=== PATIENT | male | born 1985 | race Caucasian/White ===

== ENCOUNTER 2021-09-22 12:44 | Outpatient (REF) | payer MEDICAID, SELFPAY ==
--- NOTE | ~2021-09-22 | CT_ITS ---
EXAMINATION: CT ABDOMEN AND PELVIS WITH CONTRAST CLINICAL INFORMATION: 35-year-old male with hematuria COMPARISON: Renal ultrasound 07/03/[address] abdomen pelvis 07/02/2017 TECHNIQUE: Multidetector volumetric images were obtained from the superior aspect of the liver through the pubic symphysis following administration 85 mL of Omnipaque 350 intravenous contrast. Sagittal and coronal reformatted images were obtained on the technologist's workstation. This CT examination was performed using dose optimization techniques as appropriate, variously including the following: *Automated exposure control *Adjustment of mA and/or kV according to patient size (this includes techniques or standardized protocols for targeted exams where dose is matched to indication/reason for exam; i.e. extremities or head) *Use of iterative reconstruction technique DLP: 434 mGy-cm FINDINGS: Visualized lung bases demonstrate some minimal subpleural nodularity dependently, particularly within the left lung base, nonspecific but suspected atelectasis. The liver demonstrates normal size, contour and attenuation. The gallbladder is normal in appearance. The pancreas, spleen and adrenal glands are unremarkable. Symmetrically enhancing kidneys. There is no hydronephrosis bilaterally. No gross renal calculi identified on today's contrast enhanced imaging. Interval decrease in size of now 1.3 cm hypodensity within the posterior right kidney, previously 2.7 cm. Normal caliber loops of small and large bowel. Mild to moderate colonic stool burden. Normal appendix. Normal caliber abdominal aorta. No retroperitoneal lymphadenopathy. Stable tiny fat-containing umbilical hernia. The bladder is normal in appearance. The prostate gland is normal in size. No gross free pelvic fluid. Small fat-containing left inguinal hernia. No inguinal lymphadenopathy. No acute osseous abnormality. Some ill-defined lytic changes are noted involving the left L3 pedicle, nonspecific. CT/CT abdomen pelvis w con IMPRESSION: -No hydronephrosis of either kidney. Evaluation for renal calculi is suboptimal given contrast enhanced imaging, however, no gross renal calculi are noted. -Interval decrease in size of now 1.3 cm hypodensity within the posterior right kidney, previously 2.7 cm. This was previously characterized as a cyst on prior ultrasound imaging. Follow-up ultrasound imaging can be obtained as clinically indicated. -Mild to moderate colonic stool burden. -Some ill-defined lytic changes are noted involving the left L3 pedicle, nonspecific.
[2021-09-22] MEDS: iohexoL 350 MG/ML 100 ML INFUS..BTL IV (16:04)
== END 2021-09-22 12:45 | disposition home or self-care (01) ==
LOC: HO.CT 12:44
PROVIDERS: Visit Provider Internal Medicine
DX: R31.9 Hematuria, unspecified (principal)
CPT/HCPCS: 74177; Q9967

== ENCOUNTER 2022-01-13 00:46 | Inpatient (IN) | payer OTHER, SELFPAY ==
[2022-01-13 00:49] VITALS: BP 143/72; PULSE 75; RESP 18; TEMP 37.8; O2SAT 94; BMI 25.1
--- NOTE | 2022-01-13 00:50 | ED.PSYCH ---
HPI - Psych General Chief Complaint: Psychiatric Symptoms Stated Complaint: CRISIS Time Seen by Provider: 01/13/22 00:50 Source: patient Mode of arrival: EMS Limitations: no limitations History of Present Illness MD complaint: suicidal ideation, feels depressed and anxiety Onset (ago): day(s) Duration: getting worse History of same: No Relieving factors: none Context: significant life stressor Associated psychiatric symptoms: depression, suicidal ideation, homicidal ideation and delusions Associated symptoms: denies other symptoms Treatments prior to arrival: placed on mental health hold If self harm: admits thoughts of self harm Related Data Home Medications Medication Instructions Recorded Confirmed buprenorphine 8 mg-naloxone 2 mg 1.5 strip SUBLINGUAL DAILY 01/13/22 01/13/22 sublingual film (Suboxone) Allergies Allergy/AdvReac Type Severity Reaction Status Date / Time No Known Allergies Allergy Unverified 06/24/20 17:10 [No Known Allergies*] Review of Systems Review of Systems: Constitutional : No Fever, No Chills ENT/Mouth : No Ear Pain, No Nasal Congestion, No sore throat Eyes: No Eye Pain, No Swelling, No Redness Cardiovascular : No Chest Pain, No SOB Respiratory : No Cough, No Sputum, No Dyspnea Gastrointestinal : No Nausea, No Vomiting, No Diarrhea, No Hematochezia, No Melena Genitourinary : No Dysuria, No Urinary Frequency, No Hematuria Musculoskeletal : No Myalgias Skin : No Skin Lesions, No rash Neuro : No Weakness, No Numbness, No Paresthesias, No Dizziness, No Headache Psych : positive Anxiety, positive Depression, positive SI/HI Heme/Lymph: No Lymphadenopathy Endocrine : No Polyuria, No Polydipsia All other systems reviewed and are negative [facility] Past Medical History Attestation statement: The following information was validated with the patient. Medical History Depression Opiate use Social History Social History (Updated 01/13/22 @ 01:22 by Tea Whitt DO) Patient Tobacco Use Status: Tobacco use Unknown Substance Use Type: Former Substance User Physical Exam Vital Signs: Vital Signs: Last Vital Signs Temp 99 F 01/13/22 01:29 Pulse 75 01/13/22 00:49 Resp 18 01/13/22 00:49 BP 143/72 H 01/13/22 00:49 Pulse Ox 96 01/13/22 01:29 BMI result Body Mass Index 25.1 Appearance: Alert. Oriented X3. Mild acute distress. Tearful and anxious Eyes: Pupils equal, round and reactive to light. ENT: Pharynx normal. Neck: Normal inspection. Neck supple. CVS: tachycardic heart rate and rhythm. Pulses normal. Respiratory: No respiratory distress. Breath sounds normal. Abdomen: Soft and non-tender. Skin: Skin warm and dry. Normal skin color. Normal skin turgor. R hand abrasions noted on MCPs Extremities: No lower extremity edema. Neuro: Oriented X 3. No motor deficit. No sensory deficit. CN 2-12 intact Course Course Course Narrative: Physician observation started at 213am. Patient placed in physician observation because the patient needed more time for N to assess the need for psych admission. At the time observation was started the patient's vitals were stable, patient is alert and oriented but slightly anxious, Neuro: nonfocal, CV RRR, Lungs clear MDM - Psych MDM Narrative Medical decision making narrative: 36 yo male here with mental illness c/o SI and paranoid brought in on section 12 barricaded himself in his house at this time he is very tearful will need labs, BHn consult Lab Data Result diagrams: 01/13/22 01:38 01/13/22 01:38 Labs: Lab Results 01/13/22 01/13/22 01/13/22 Range/Units 01:08 01:08 01:38 WBC 8.3 (4.8-10.8) X10*3/uL RBC 4.33 L (4.60-5.80) X10*6/uL Hgb 13.9 L (14.0-18.0) g/dl Hct 41.1 L (42.0-52.0) % MCV 94.9 (80.0-98.0) fL MCH 32.1 (27.0-33.0) pg MCHC 33.8 (31.0-36.0) g/dl RDW 12.7 (11.0-16.0) % Plt Count 228 (160-400) X10*3/uL MPV 10.1 (9.4-12.4) fL Immature Gran % (Auto) 0.4 (0.0-0.4) % Neut % (Auto) 80.2 H (45-73) % Lymph % (Auto) 12.2 L (20-40) % Spink % (Auto) 6.4 (2-11) % Eos % (Auto) 0.1 (0-4) % Baso % (Auto) 0.7 (0-2) % Lymph # (Auto) 1.0 L (1.2-4.9) X10*3/uL Spink # (Auto) 0.5 (0.1-1.2) X10*3/uL Eos # (Auto) 0.0 (0.0-0.4) X10*3/uL Baso # (Auto) 0.1 (0.0-0.2) X10*3/uL Abs Immat Gran (auto) 0.03 (0.00-0.03) X10*3/uL Absolute Neuts (auto) 6.7 (2.0-8.3) x10*3/uL Absolute Nucleated RBC 0.000 (0.0-0.012) X10*3/uL Nucleated RBC % (auto) 0.0 (0.0-0.2) /100WBC Sodium (135-145) mmol/L Potassium (3.3-5.1) mmol/L Chloride (96-108) mmol/L Carbon Dioxide (22-29) mmol/L Anion Gap (12-20) BUN (9-16) mg/dL Creatinine (0.5-1.4) mg/dL Estim Creat Clear Calc Estimated GFR Random Glucose (60-115) mg/dL Calcium (8.4-10.2) mg/dL Magnesium (1.6-2.6) mg/dL Total Bilirubin (0.0-1.0) mg/dL Direct Bilirubin (0.0-0.5) mg/dL AST (5-37) U/L ALT (0-40) U/L Alkaline Phosphatase (39-117) U/L Total Protein (6.5-8.0) g/dL Albumin (3.5-5.0) g/dL Urine Opiates Screen Not Detected (Not Detect) Urine Fentanyl Screen Not Detected (Not Detect) Ur Barbiturates Screen Not Detected (Not Detect) Ur Phencyclidine Scrn Not Detected (Not Detect) Ur Amphetamines Screen Not Detected (Not Detect) U Benzodiazepines Scrn Not Detected (Not Detect) Urine Cocaine Screen Not Detected (Not Detect) U Marijuana (THC) Screen POSITIVE H (Not Detect) Ethyl Alcohol mg/dL COVID-19 (MARY) Negative (Negative) COVID-19 Clin Com See Note 01/13/22 01/13/22 Range/Units 01:38 01:38 WBC (4.8-10.8) X10*3/uL RBC (4.60-5.80) X10*6/uL Hgb (14.0-18.0) g/dl Hct (42.0-52.0) % MCV (80.0-98.0) fL MCH (27.0-33.0) pg MCHC (31.0-36.0) g/dl RDW (11.0-16.0) % Plt Count (160-400) X10*3/uL MPV (9.4-12.4) fL Immature Gran % (Auto) (0.0-0.4) % Neut % (Auto) (45-73) % Lymph % (Auto) (20-40) % Spink % (Auto) (2-11) % Eos % (Auto) (0-4) % Baso % (Auto) (0-2) % Lymph # (Auto) (1.2-4.9) X10*3/uL Spink # (Auto) (0.1-1.2) X10*3/uL Eos # (Auto) (0.0-0.4) X10*3/uL Baso # (Auto) (0.0-0.2) X10*3/uL Abs Immat Gran (auto) (0.00-0.03) X10*3/uL Absolute Neuts (auto) (2.0-8.3) x10*3/uL Absolute Nucleated RBC (0.0-0.012) X10*3/uL Nucleated RBC % (auto) (0.0-0.2) /100WBC Sodium 141 (135-145) mmol/L Potassium 4.5 (3.3-5.1) mmol/L Chloride 108 (96-108) mmol/L Carbon Dioxide 26 (22-29) mmol/L Anion Gap 12 (12-20) BUN 8 L (9-16) mg/dL Creatinine 0.79 (0.5-1.4) mg/dL Estim Creat Clear Calc 129.2 Estimated GFR > 60 Random Glucose 110 (60-115) mg/dL Calcium 9.2 (8.4-10.2) mg/dL Magnesium 2.1 (1.6-2.6) mg/dL Total Bilirubin 0.4 (0.0-1.0) mg/dL Direct Bilirubin < 0.2 (0.0-0.5) mg/dL AST 27 (5-37) U/L ALT 24 (0-40) U/L Alkaline Phosphatase 60 (39-117) U/L Total Protein 7.0 (6.5-8.0) g/dL Albumin 4.5 (3.5-5.0) g/dL Urine Opiates Screen (Not Detect) Urine Fentanyl Screen (Not Detect) Ur Barbiturates Screen (Not Detect) Ur Phencyclidine Scrn (Not Detect) Ur Amphetamines Screen (Not Detect) U Benzodiazepines Scrn (Not Detect) Urine Cocaine Screen (Not Detect) U Marijuana (THC) Screen (Not Detect) Ethyl Alcohol < 10 mg/dL COVID-19 (MARY) (Negative) COVID-19 Clin Com Discharge Plan Discharge Clinical Impression: Suicidal ideation Patient Disposition: Still a Patient Prescriptions: No Action buprenorphine-naloxone [Suboxone] 8-2 mg film 1.5 strip sublingual DAILY 0RF
[2022-01-13 01:29] VITALS: TEMP 37.2; O2SAT 96
[2022-01-13] MEDS: Buprenorphine/Naloxone 4/1 mg FILM 1 FILM SUBLINGUAL (01:34)
[2022-01-13 01:37] LABS: COVID-19 Test Negative (Negative); IDNOW Serial# 16C4AD1C
[2022-01-13 01:40] LABS: Amphetamine Screen Urine Not Detected (Not Detect); Barbiturates, Urine Not Detected (Not Detect); Benzodiazepines Screen Urine Not Detected (Not Detect); Cannabinoid Screen Urine POSITIVE (Not Detect); Cocaine Screen Urine Not Detected (Not Detect); Fentanyl, urine Not Detected (Not Detect); Opiate Screen Urine Not Detected (Not Detect); Phencyclidine Screen Urine Not Detected (Not Detect)
--- NOTE | 2022-01-13 01:45 | MHC.CARE ---
Pt's partner of 20 years contacted the CARE team reporting that she would like to speak to the assessing clinician that evaluates pt. SHe understands informaton cannot be provided to her without a release but she would like to provide information about pt's mental health to clinician. Amina Concepcion [phone]
[2022-01-13 01:46] LABS: Basophils Absolute Auto 0.1 X10*3/uL (0.0-0.2); Basophils Percent Auto 0.7 % (0-2); Eosinophils Percent Auto 0.1 % (0-4); Hematocrit 41.1 % (42.0-52.0); Hemoglobin 13.9 g/dl (14.0-18.0); Imm Gran Abs Auto 0.03 X10*3/uL (0.00-0.03); Imm Gran Pct Auto 0.4 % (0.0-0.4); Lymphocytes Percent Auto 12.2 % (20-40); MANUAL DIFF FLAG NO; Mean Corpuscular HGB Conc 33.8 g/dl (31.0-36.0); Mean Corpuscular Hemoglobin 32.1 pg (27.0-33.0); Mean Corpuscular Volume 94.9 fL (80.0-98.0); Mean Platelet Volume 10.1 fL (9.4-12.4); Monocytes Absolute Auto 0.5 X10*3/uL (0.1-1.2); Monocytes Percent Auto 6.4 % (2-11); Neutrophils Absolute Auto 6.7 x10*3/uL (2.0-8.3); Neutrophils Percent Auto 80.2 % (45-73); Platelet Count 228 X10*3/uL (160-400); Red Blood Count 4.33 X10*6/uL (4.60-5.80); Red Cell Distribution Width 12.7 % (11.0-16.0); White Blood Count 8.3 X10*3/uL (4.8-10.8)
[2022-01-13 02:04] LABS: Ethanol < 10 mg/dL
[2022-01-13 02:08] LABS: Alanine Aminotransferase 24 U/L (0-40); Albumin Level 4.5 g/dL (3.5-5.0); Alkaline Phosphatase 60 U/L (39-117); Anion Gap 12 (12-20); Aspartate Amino Transferase 27 U/L (5-37); Bilirubin Direct < 0.2 mg/dL (0.0-0.5); Bilirubin Total 0.4 mg/dL (0.0-1.0); Blood Urea Nitrogen 8 mg/dL (9-16); Calcium 9.2 mg/dL (8.4-10.2); Carbon Dioxide 26 mmol/L (22-29); Chloride 108 mmol/L (96-108); Creatinine Clr Calc Pharmacy 129.2; Estimated Glomerular Filt Rate > 60; Glucose Random 110 mg/dL (60-115); Magnesium 2.1 mg/dL (1.6-2.6); Potassium 4.5 mmol/L (3.3-5.1); Sodium 141 mmol/L (135-145)
--- NOTE | 2022-01-13 05:24 | PC.NURSE ---
Patient slept through the night, no distress observed/reported, administered suboxone 4/2 with positive effect, patient was tearful at the time of arrival, BHN referral completed/confirmed/pending evaluation in the morning, medication compliant, VSS, will continue to monitor.
--- NOTE | 2022-01-13 07:21 | PC.NURSE ---
patient appears to remain asleep at presentrespirations are even and unlabored patient appears in no distress
[2022-01-13 08:18] VITALS: BP 122/80; PULSE 55; RESP 16; O2SAT 98
[2022-01-13] MEDS: Buprenorphine/Naloxone 8/2 mg FILM 1 FILM SUBLINGUAL (11:29)
[2022-01-13 19:29] VITALS: TEMP 36.8
--- NOTE | 2022-01-13 19:33 | P.CNPS_ITS ---
History of Present Illness Chief Complaint: CRISIS [facility] Medical History Depression Opiate use Diagnostics Vital Signs (24Hr): Vital Signs - 24 hr 01/13/22 00:49 01/13/22 01:29 01/13/22 08:18 Temperature 100.1 F 99 F Pulse Rate 75 55 Respiratory Rate 18 16 Blood Pressure 143/72 H 122/80 Pulse Oximetry 94 96 98 01/13/22 19:29 Temperature 98.2 F Pulse Rate Respiratory Rate Blood Pressure Pulse Oximetry BMI result Body Mass Index 25.1 Labs Results: 01/13/22 01:38 01/13/22 01:38 Labs: Laboratory Results - last 48 hr 01/13/22 01/13/22 01/13/22 01:08 01:08 01:38 WBC 8.3 RBC 4.33 L Hgb 13.9 L Hct 41.1 L MCV 94.9 MCH 32.1 MCHC 33.8 RDW 12.7 Plt Count 228 MPV 10.1 Immature Gran % (Auto) 0.4 Neut % (Auto) 80.2 H Lymph % (Auto) 12.2 L Sheridan % (Auto) 6.4 Eos % (Auto) 0.1 Baso % (Auto) 0.7 Lymph # (Auto) 1.0 L Sheridan # (Auto) 0.5 Eos # (Auto) 0.0 Baso # (Auto) 0.1 Abs Immat Gran (auto) 0.03 Absolute Neuts (auto) 6.7 Absolute Nucleated RBC 0.000 Nucleated RBC % (auto) 0.0 Sodium Potassium Chloride Carbon Dioxide Anion Gap BUN Creatinine Estim Creat Clear Calc Estimated GFR Random Glucose Calcium Magnesium Total Bilirubin Direct Bilirubin AST ALT Alkaline Phosphatase Total Protein Albumin Urine Opiates Screen Not Detected Urine Fentanyl Screen Not Detected Ur Barbiturates Screen Not Detected Ur Phencyclidine Scrn Not Detected Ur Amphetamines Screen Not Detected U Benzodiazepines Scrn Not Detected Urine Cocaine Screen Not Detected U Marijuana (THC) Screen POSITIVE H Ethyl Alcohol COVID-19 (MARY) Negative COVID-19 Clin Com See Note 01/13/22 01/13/22 01:38 01:38 WBC RBC Hgb Hct MCV MCH MCHC RDW Plt Count MPV Immature Gran % (Auto) Neut % (Auto) Lymph % (Auto) Sheridan % (Auto) Eos % (Auto) Baso % (Auto) Lymph # (Auto) Sheridan # (Auto) Eos # (Auto) Baso # (Auto) Abs Immat Gran (auto) Absolute Neuts (auto) Absolute Nucleated RBC Nucleated RBC % (auto) Sodium 141 Potassium 4.5 Chloride 108 Carbon Dioxide 26 Anion Gap 12 BUN 8 L Creatinine 0.79 Estim Creat Clear Calc 129.2 Estimated GFR > 60 Random Glucose 110 Calcium 9.2 Magnesium 2.1 Total Bilirubin 0.4 Direct Bilirubin < 0.2 AST 27 ALT 24 Alkaline Phosphatase 60 Total Protein 7.0 Albumin 4.5 Urine Opiates Screen Urine Fentanyl Screen Ur Barbiturates Screen Ur Phencyclidine Scrn Ur Amphetamines Screen U Benzodiazepines Scrn Urine Cocaine Screen U Marijuana (THC) Screen Ethyl Alcohol < 10 COVID-19 (MARY) COVID-19 Clin Com Medications Medications Current Medications Buprenorphine/Naloxone (Buprenorphine/Naloxone 8/2 Mg Film) 1 film SUBLINGUAL DAILY MARY GRACE Last Admin: 01/13/22 11:29 Dose: 1 film Documented by: Allergies Allergies Allergy/AdvReac Type Severity Reaction Status Date / Time No Known Allergies Allergy Unverified 06/24/20 17:10 [No Known Allergies*] Assessment & Plan I spent minutes with the patient and/or on the patient floor today, greater than?50% of which was spent counseling/coordinating care.
[2022-01-13] MEDS: OLANZapine 5 MG TABLET PO (20:34)
--- NOTE | 2022-01-13 20:46 | P.HPPS_ITS ---
HPI Date of Service: 01/13/22 Chief Complaint: Paranoia Sources of Information: patient interviewed, chart reviewed and crisis/core team assessment reviewed HPI Subjective Notes: Queen Warning and Conditional Voluntary Healthcare Proxy: No Guardianship: No Medical Problems Affecting Mental Status: No Narrative: Pavan is a 36 yo male who presented to [facility] ED on 01/13/22 due to SI, HI, paranoid thoughts, and psychotic behavior. He arrived via a section 12a after his called 911. Per report, pt became dysregulated and accused his son and of conspiring to poison him after they returned home with pilogan, he became upset, yelling, broke an end table, punched a wall. He then accused his of poisoning his suboxone, threw his medication at her and demanded to get a new script. Pt then made verbal threats, stated ?I am going to murder them, then all of you then myself.? After pt?s called [place] , he barricaded himself in his room with a pocket knife and it took 2 hours for him to come out, police had to pick the lock. Per pt?s , he has been increasingly paranoid and psychotic over the past few months, believes neighbors are spying on them, have wire tapped their house, has accused her of having affairs with thousands of people. She has seen him go out into the [place], shouting, appearing to respond to internal stimuli. After PD left, she found a box covered in chains and inside the box there were multiple knives and machetes. He carries a pocket knife on him at all times. Precipitating factors include that pt found out his had an affair 10 yrs ago, since then he has decompensated. He has difficulty managing in public, i.e. they went to [facility] and he accused a random person of sleeping with his . [facility] filed a 51A. I evaluated the pt this evening and upon interview he reports he feels ?so fed up.? He is irritable. Says he had an argument with the mother of his kids, punched a wall, then went to bed and his ?s ?boyfriend showed up to have me section 12.? He says his will ?drive me crazy to the point that I could explode,? however insists ?I really do not need psychiatric help.? Pt denies accusing his son of poisoning the pizza, but he is vague and says he asked son if ?he was the one doing favors for his mother,? when asked to elaborate pt repeats that ?it does not matter? and ?it makes no sense.? He does endorse paranoid ideation that people are out to get him, says there are ?a group of people my talks with that she doesn?t tell me about? who ?drive by my house all the time? and park ?up and down the street from my house.? He says these people are driving by because they ?dont like my relationship with her.? He believes his has a bf in the police department and that she called 911 because she is ?tired of hiding,? however admits that his denies having a bf.? He says he does not believe her because she ?comes home smelling like some else?s house every night.? Pt says his sleep is ?okay.? Past Psychiatric History: -Denies past psych hx -Per chart, pt cut himself in front of his partner when he found out she cheated on him 10 yrs ago. -Past meds: Wellbutrin (wt gain), ?a lot of antidepressants (from PCP) Medical Evaluation Reviewed: Yes [facility] Medical History Depression Opiate use Family History: -Father: alcoholic. Mother: anxiety and depression Social History: -Pt was laid off during , worked at [employer]. He briefly held a new job in 04/2022 but quit due to ?it being a hostile work environment.? Per pt?s , he believed staff were trying to get him. -Technically unmarried but with his partner for 20 yrs, they have 2 children (age 11, 17) -Pt has a strained relationship with his family due to their mental health and substance use issues. Substance History: -Pt is 10 yrs sober from opiates. Obtains suboxone from PCP. Trauma History: -Per chart, pt had a chaotic upbringing. Diagnostics Vital Signs (24Hr): Vital Signs - 24 hr 01/13/22 00:49 01/13/22 01:29 01/13/22 08:18 Temperature 100.1 F 99 F Pulse Rate 75 55 Respiratory Rate 18 16 Blood Pressure 143/72 H 122/80 Pulse Oximetry 94 96 98 01/13/22 19:29 Temperature 98.2 F Pulse Rate Respiratory Rate Blood Pressure Pulse Oximetry BMI result Body Mass Index 25.1 Labs Results: 01/13/22 01:38 01/13/22 01:38 Labs: Laboratory Results - last 48 hr 01/13/22 01/13/22 01/13/22 01:08 01:08 01:38 WBC 8.3 RBC 4.33 L Hgb 13.9 L Hct 41.1 L MCV 94.9 MCH 32.1 MCHC 33.8 RDW 12.7 Plt Count 228 MPV 10.1 Immature Gran % (Auto) 0.4 Neut % (Auto) 80.2 H Lymph % (Auto) 12.2 L Kerr % (Auto) 6.4 Eos % (Auto) 0.1 Baso % (Auto) 0.7 Lymph # (Auto) 1.0 L Kerr # (Auto) 0.5 Eos # (Auto) 0.0 Baso # (Auto) 0.1 Abs Immat Gran (auto) 0.03 Absolute Neuts (auto) 6.7 Absolute Nucleated RBC 0.000 Nucleated RBC % (auto) 0.0 Sodium Potassium Chloride Carbon Dioxide Anion Gap BUN Creatinine Estim Creat Clear Calc Estimated GFR Random Glucose Calcium Magnesium Total Bilirubin Direct Bilirubin AST ALT Alkaline Phosphatase Total Protein Albumin Urine Opiates Screen Not Detected Urine Fentanyl Screen Not Detected Ur Barbiturates Screen Not Detected Ur Phencyclidine Scrn Not Detected Ur Amphetamines Screen Not Detected U Benzodiazepines Scrn Not Detected Urine Cocaine Screen Not Detected U Marijuana (THC) Screen POSITIVE H Ethyl Alcohol COVID-19 (MARY) Negative COVID-19 Clin Com See Note 01/13/22 01/13/22 01:38 01:38 WBC RBC Hgb Hct MCV MCH MCHC RDW Plt Count MPV Immature Gran % (Auto) Neut % (Auto) Lymph % (Auto) Kerr % (Auto) Eos % (Auto) Baso % (Auto) Lymph # (Auto) Kerr # (Auto) Eos # (Auto) Baso # (Auto) Abs Immat Gran (auto) Absolute Neuts (auto) Absolute Nucleated RBC Nucleated RBC % (auto) Sodium 141 Potassium 4.5 Chloride 108 Carbon Dioxide 26 Anion Gap 12 BUN 8 L Creatinine 0.79 Estim Creat Clear Calc 129.2 Estimated GFR > 60 Random Glucose 110 Calcium 9.2 Magnesium 2.1 Total Bilirubin 0.4 Direct Bilirubin < 0.2 AST 27 ALT 24 Alkaline Phosphatase 60 Total Protein 7.0 Albumin 4.5 Urine Opiates Screen Urine Fentanyl Screen Ur Barbiturates Screen Ur Phencyclidine Scrn Ur Amphetamines Screen U Benzodiazepines Scrn Urine Cocaine Screen U Marijuana (THC) Screen Ethyl Alcohol < 10 COVID-19 (MARY) COVID-19 Clin Com Meds/Allergies Meds Home Medications Acetaminophen (Acetaminophen 325 Mg Tablet) 650 mg PO Q6H PRN PRN Reason: Headache/Pain Mild Scale (1-3) Al Hydroxide/Mg Hydroxide (Magnesium Hydrox/Alum Hydrox 30 Ml Oral.Susp) 30 ml PO Q6H PRN PRN Reason: Heartburn/Nausea Buprenorphine/Naloxone (Buprenorphine/Naloxone 8/2 Mg Film) 1 film SUBLINGUAL DAILY MARY GRACE Last Admin: 01/14/22 08:36 Dose: 1 film Documented by: Diphenhydramine HCl (Diphenhydramine Hcl 25 Mg Tablet) 50 mg PO Q4H PRN PRN Reason: agitation Haloperidol (Haloperidol 5 Mg Tablet) 5 mg PO Q4H PRN PRN Reason: agitation Hydroxyzine HCl (Hydroxyzine Hcl 25 Mg Tablet) 25 mg PO QID PRN PRN Reason: Anxiety Lorazepam (Lorazepam 1 Mg Tablet) 2 mg PO Q4H PRN PRN Reason: agitation Magnesium Hydroxide (Milk Of Magnesia 30 Ml Oral.Susp) 30 ml PO DAILY PRN PRN Reason: Constipation Nicotine Polacrilex (Nicotine Polacrilex 2 Mg Gum) 4 mg BUCCAL Q2H PRN PRN Reason: Nicotine Cravings Olanzapine (Olanzapine 5 Mg Tablet) 5 mg PO Q6H PRN PRN Reason: anxiety, agitation Last Admin: 01/14/22 08:39 Dose: 5 mg Documented by: Trazodone HCl (Trazodone Hcl 50 Mg Tablet) 50 mg PO BEDTIME PRN PRN Reason: Insomnia Last Admin: 01/13/22 22:14 Dose: 50 mg Documented by: Allergies Allergies Allergy/AdvReac Type Severity Reaction Status Date / Time No Known Allergies Allergy Unverified 06/24/20 17:10 [No Known Allergies*] Mental Status Exam Mental Status Exam Narrative: A&O except to situation. In hospital attire, lying down in bed. Poor eye contact, attentive. No Tics or Tremors. No abnormal involuntary movements. Agitated, guarded, difficult to engage. Speech is pressured, spontaneous with regular rate and rhythm. No prolonged speech latency or dysarthria. Mood is [did not state], affect is irritable. Denies SI/SIB/HI upon inquiry. Denies A/VH. Presents with paranoid delusional thought content. Thoughts are ruminative, illogical. Minimizing his sx. No known cognitive or memory impairment. Insight/ Judgment poor. Assessment & Plan Assessment & Plan (1) Delusional disorder: Status: Acute Code(s): F22 - Delusional disorders (2) MDD (major depressive disorder), recurrent, severe, with psychosis: Status: Acute Code(s): F33.3 - Major depressive disorder, recurrent, severe with psychotic symptoms Plan Pavan is a 36 yo male who presented to [facility] ED on 01/13/22 due to SI, HI, paranoid thoughts, and psychotic behavior. He arrived via a section 12a after his called 911. Pt does not have a formal psych hx, has had antidepressants and wellbutrin prescribed by PCP in the past, on suboxone and sober from opiates x 10 yrs. Per report, pt has decompensated in the past several months since finding out his cheated on him 10 yrs ago, increasingly paranoid, threatening, agitated, and impulsive. He has difficulty regulating emotions and is not re-directable. Plan: Pt insists that he does not have psychiatric issues and appears to have poor insight into his psychotic sx/ behavior. He is willing to trial medication for anxiety. Will start zyprexa 5 mg BID PRN for anxiety and defer further changes to primary psych team.? Q15 min safety checks, CV Monitor response to medications. Monitor for safety in the milieu. Discharge on stabilization. Patient seen. Chart reviewed. Discussed with team. Obtain collateral contact info?as needed Patient educated on: medication risk/benefits and therapeutic strategies Reason for continued inpatient stay Substantial Risk for: harm to self, harm to others, inability to function, rapid decompensation and med/psych decompensation
[2022-01-13 21:10] VITALS: BP 128/79; PULSE 52; RESP 16; TEMP 36.1; O2SAT 96
[2022-01-13] MEDS: traZODone HCL 50 MG TABLET PO (22:14)
--- NOTE | 2022-01-14 00:04 | PC.ADMIT ---
PT arrived to unit at 2105 on CV, then signed a 3 day notice. PT is a 36 yearold male, who presented [place] [facility] [place] on Sec 12 by Lela WHITING after making SI/HI statements toward partner. PT then barricaded self in room with a pocket knife for a 2 hour stand off with police, police picked lock and gained access to PT who willingly went to ED. PT is unknown to CARE team or [facility]. PT denies SI/HI at this time. PT denies AH/VH at this time. PT was cooperative during admission process. PT currently uses a vape, smoke cessation consult ordered. PT declined flu vaccine. PT is Covid -. Toxscreen + for marijuana. PT med rec done only on Suboxone. PT has 3 abrasion on knuckles of right hand and abrasion on face on left side near side of nose. PT resting in room at this time.
[2022-01-14 07:50] LABS: Cholesterol 152 mg/dL; Estimated Average Glucose 103 mg/dL; HDL Cholesterol 33 mg/dL; Hemoglobin A1c % 5.2 %; LDL Cholesterol Calculated 108 mg/dl; Triglycerides 58 mg/dL
[2022-01-14 08:30] VITALS: BP 142/69; PULSE 55; TEMP 36.6
[2022-01-14] MEDS: Buprenorphine/Naloxone 8/2 mg FILM 1 FILM SUBLINGUAL (08:36)
[2022-01-14] MEDS: OLANZapine 5 MG TABLET PO (08:39)
--- NOTE | 2022-01-14 10:01 | HO.PSYCHPN ---
Subjective Subjective Date of Service: 01/14/22 Reason For Visit: Paranoia Interim History: Patient resting in bed. He says that he is feeling better; earlier in the day he said he was having racing thoughts but taking the p.r.n. Zyprexa helped him be more calm. He agrees to start this medication scheduled. Patient denies any SI or HI. He says that his SI/HI comments were only said in the heat of any emotional altercation with his whom he has been with for 17 years; he says they know each other so well that they know how to push each other's buttons. He denies any plans or intentions of hurting anyone. Patient got a little tearful regarding the future of his relationship with her but agrees that for now it is time to rest and give himself time to process. Otherwise patient denies any complaints and has no requests. Thus far Patient has been calm with appropriate behavior and impulse control on the unit Mental Status Exam Mental Status Exam Narrative: A&O except to situation. In hospital attire, lying down in bed. adequate eye contact, attentive. No Tics or Tremors. No abnormal involuntary movements. calm, cooperative; Speech is normal rate, volume, prosody; spontaneous w/out latency; Mood is better affect is a little tearful. Denies SI/SIB/HI upon inquiry. Denies A/VH. does not express paranoid delusional thought content. Thought process is goal oriented and organized. Thought content is on recent event and altercation with his . No known cognitive or memory impairment. Insight/ Judgment impaired. Diagnostics Vital Signs (24Hr): Vital Signs - 24 hr 01/13/22 19:29 01/13/22 21:10 Temperature 98.2 F 97 F Pulse Rate 52 Respiratory Rate 16 Blood Pressure 128/79 Pulse Oximetry 96 BMI result Body Mass Index 25.1 Labs Results: 01/13/22 01:38 01/13/22 01:38 Labs: Laboratory Results - last 48 hr 01/13/22 01/13/22 01/13/22 01:08 01:08 01:38 WBC 8.3 RBC 4.33 L Hgb 13.9 L Hct 41.1 L MCV 94.9 MCH 32.1 MCHC 33.8 RDW 12.7 Plt Count 228 MPV 10.1 Immature Gran % (Auto) 0.4 Neut % (Auto) 80.2 H Lymph % (Auto) 12.2 L [place] % (Auto) 6.4 Eos % (Auto) 0.1 Baso % (Auto) 0.7 Lymph # (Auto) 1.0 L [place] # (Auto) 0.5 Eos # (Auto) 0.0 Baso # (Auto) 0.1 Abs Immat Gran (auto) 0.03 Absolute Neuts (auto) 6.7 Absolute Nucleated RBC 0.000 Nucleated RBC % (auto) 0.0 Sodium Potassium Chloride Carbon Dioxide Anion Gap BUN Creatinine Estim Creat Clear Calc Estimated GFR Random Glucose Estimat Average Glucose Hemoglobin A1c % Calcium Magnesium Total Bilirubin Direct Bilirubin AST ALT Alkaline Phosphatase Total Protein Albumin Triglycerides Cholesterol LDL Cholesterol, Calc HDL Cholesterol Urine Opiates Screen Not Detected Urine Fentanyl Screen Not Detected Ur Barbiturates Screen Not Detected Ur Phencyclidine Scrn Not Detected Ur Amphetamines Screen Not Detected U Benzodiazepines Scrn Not Detected Urine Cocaine Screen Not Detected U Marijuana (THC) Screen POSITIVE H Ethyl Alcohol COVID-19 (MARY) Negative COVID-19 [employer] Com See Note 01/13/22 01/13/22 01/14/22 01:38 01:38 07:17 WBC RBC Hgb Hct MCV MCH MCHC RDW Plt Count MPV Immature Gran % (Auto) Neut % (Auto) Lymph % (Auto) [place] % (Auto) Eos % (Auto) Baso % (Auto) Lymph # (Auto) [place] # (Auto) Eos # (Auto) Baso # (Auto) Abs Immat Gran (auto) Absolute Neuts (auto) Absolute Nucleated RBC Nucleated RBC % (auto) Sodium 141 Potassium 4.5 Chloride 108 Carbon Dioxide 26 Anion Gap 12 BUN 8 L Creatinine 0.79 Estim Creat Clear Calc 129.2 Estimated GFR > 60 Random Glucose 110 Estimat Average Glucose 103 Hemoglobin A1c % 5.2 Calcium 9.2 Magnesium 2.1 Total Bilirubin 0.4 Direct Bilirubin < 0.2 AST 27 ALT 24 Alkaline Phosphatase 60 Total Protein 7.0 Albumin 4.5 Triglycerides Cholesterol LDL Cholesterol, Calc HDL Cholesterol Urine Opiates Screen Urine Fentanyl Screen Ur Barbiturates Screen Ur Phencyclidine Scrn Ur Amphetamines Screen U Benzodiazepines Scrn Urine Cocaine Screen U Marijuana (THC) Screen Ethyl Alcohol < 10 COVID-19 (MARY) COVID-19 [employer] Com 01/14/22 07:17 WBC RBC Hgb Hct MCV MCH MCHC RDW Plt Count MPV Immature Gran % (Auto) Neut % (Auto) Lymph % (Auto) [place] % (Auto) Eos % (Auto) Baso % (Auto) Lymph # (Auto) [place] # (Auto) Eos # (Auto) Baso # (Auto) Abs Immat Gran (auto) Absolute Neuts (auto) Absolute Nucleated RBC Nucleated RBC % (auto) Sodium Potassium Chloride Carbon Dioxide Anion Gap BUN Creatinine Estim Creat Clear Calc Estimated GFR Random Glucose Estimat Average Glucose Hemoglobin A1c % Calcium Magnesium Total Bilirubin Direct Bilirubin AST ALT Alkaline Phosphatase Total Protein Albumin Triglycerides 58 Cholesterol 152 LDL Cholesterol, Calc 108 HDL Cholesterol 33 Urine Opiates Screen Urine Fentanyl Screen Ur Barbiturates Screen Ur Phencyclidine Scrn Ur Amphetamines Screen U Benzodiazepines Scrn Urine Cocaine Screen U Marijuana (THC) Screen Ethyl Alcohol COVID-19 (MARY) COVID-19 Clin Com Medications Medications Current Medications Acetaminophen (Acetaminophen 325 Mg Tablet) 650 mg PO Q6H PRN PRN Reason: Headache/Pain Mild Scale (1-3) Al Hydroxide/Mg Hydroxide (Magnesium Hydrox/Alum Hydrox 30 Ml Oral.Susp) 30 ml PO Q6H PRN PRN Reason: Heartburn/Nausea Buprenorphine/Naloxone (Buprenorphine/Naloxone 8/2 Mg Film) 1 film SUBLINGUAL DAILY [facility] Last Admin: 01/14/22 08:36 Dose: 1 film Documented by: Diphenhydramine HCl (Diphenhydramine Hcl 25 Mg Tablet) 50 mg PO Q4H PRN PRN Reason: agitation Haloperidol (Haloperidol 5 Mg Tablet) 5 mg PO Q4H PRN PRN Reason: agitation Hydroxyzine HCl (Hydroxyzine Hcl 25 Mg Tablet) 25 mg PO QID PRN PRN Reason: Anxiety Lorazepam (Lorazepam 1 Mg Tablet) 2 mg PO Q4H PRN PRN Reason: agitation Magnesium Hydroxide (Milk Of Magnesia 30 Ml Oral.Susp) 30 ml PO DAILY PRN PRN Reason: Constipation Nicotine Polacrilex (Nicotine Polacrilex 2 Mg Gum) 4 mg BUCCAL Q2H PRN PRN Reason: Nicotine Cravings Olanzapine (Olanzapine 5 Mg Tablet) 5 mg PO Q6H PRN PRN Reason: anxiety, agitation Last Admin: 01/14/22 08:39 Dose: 5 mg Documented by: Trazodone HCl (Trazodone Hcl 50 Mg Tablet) 50 mg PO BEDTIME PRN PRN Reason: Insomnia Last Admin: 01/13/22 22:14 Dose: 50 mg Documented by: Allergies Allergies Allergy/AdvReac Type Severity Reaction Status Date / Time No Known Allergies Allergy Unverified 06/24/20 17:10 [No Known Allergies*] Assessment & Plan Assessment & Plan (1) Delusional disorder: Status: Acute Code(s): F22 - Delusional disorders (2) MDD (major depressive disorder), recurrent, severe, with psychosis: Status: Acute Code(s): F33.3 - Major depressive disorder, recurrent, severe with psychotic symptoms Plan Pavan is a 36 yo male who presented to [facility] [place] [facility] on 01/13/22 due to SI, HI, paranoid thoughts, and psychotic behavior. He arrived via a section 12a after his called 911. Pt does not have a formal psych hx, has had antidepressants and wellbutrin prescribed by PCP in the past, on suboxone and sober from opiates x 10 yrs. Per report, pt has decompensated in the past several months since finding out his cheated on him 10 yrs ago, increasingly paranoid, threatening, agitated, and impulsive. He has difficulty regulating emotions and is not re-directable. On admission, Pt insists that he does not have psychiatric issues and appears to have poor insight into his psychotic sx/ behavior. He is willing to trial medication for anxiety. 01/14 Patient calm on approach and says he is feeling better, says Zyprexa p.r.n. helped and agrees to schedule it. Says that altercation was just due to relational strife and denies any SI or HI PLAN: Start Zyprexa 5mg BID (found PRN calming and denied side-effects) Q15 min safety checks, CV Monitor response to medications. Monitor for safety in the milieu. Discharge on stabilization. Patient seen. Chart reviewed. Discussed with team. Obtain collateral contact info?as needed Patient educated on: medication risk/benefits and therapeutic strategies I spent minutes with the patient and/or on the patient floor today, greater than?50% of which was spent counseling/coordinating care. Reason for contiued inpatient stay Substantial Risk for: rapid decompensation
[2022-01-14] MEDS: Bacitracin Oint 14 GM TUBE 1 APPL TOPICAL (12:23)
[2022-01-14 16:36] VITALS: BP 143/82; PULSE 54; RESP 16; TEMP 36.5; O2SAT 97
[2022-01-15 08:30] VITALS: BP 133/74; PULSE 56; TEMP 36.7
[2022-01-15] MEDS: Buprenorphine/Naloxone 8/2 mg FILM 1 FILM SUBLINGUAL (08:44)
[2022-01-15] MEDS: OLANZapine 5 MG TABLET PO ×3 (08:45→21:17)
--- NOTE | 2022-01-15 13:06 | P.PNPSI_ITS ---
Subjective Subjective Date of Service: 01/15/22 Reason For Visit: Paranoia Interim History: Patient reports that he is feeling much better. He said that he slept well last night and feels very refreshed thoughts morning. He is very grateful for the mood stabilizer saying that this was probably the missing ingredient and that he had only been on antidepressants before. He said he can tell that he is much less reactive, can think more clearly and is not overwhelmed by his emotions. Physician reviewed risks/side effects of Zyprexa which patient understood, asked questions about and agreed to continue with. Patient said he is thinking clear and that it has been a long-time since I had clarity. He does not know why he got delusional and thought that his family was poisoning his food. He remembers this but has no idea why and says he does not think that at all anymore. Patient says perhaps being unemployed all the stress that is gone his life has been contributory. Patient is meeting today with his which he is looking forward to. Patient discussed being on Suboxone for 10 years and that accidentally went providers changed he lost having a therapist. His Suboxone was continued but not therapy and he feels that this was a mistake and wants to get back into it. Regarding Suboxone, patient said that he has been sober for the past 10 years and would like to taper off Suboxone at some point but for now wants to remain on current dose until he can prove to himself that he can remained stable for a while. Patient encouraged video game script writer to discuss his case with his Mental Status Exam Mental Status Exam Narrative: Pt is alert and oriented; behavior is cooperative, friendly and calm; patient is not in distress; dressed in casual attire with adequate hygiene; mood is described as good and affect congruent, brighter, calm; eye contact appropria te; Speech is normal rate, volume and prosody and not pressured; no psychomotor agitation/retardation present; thought process is organized and goal directed; Thought content is on making sense of recent past event and staying stable; otherwise pertinent to relevant topics and without any delusional content, paranoid ideations or grandiosity; denies any SI/HI. There is no evidence of perceptual disturbance. Patients insight and judgment improving. Diagnostics Vital Signs (24Hr): Vital Signs - 24 hr 01/14/22 16:36 01/15/22 08:30 Temperature 97.7 F 98.1 F Pulse Rate 54 56 Respiratory Rate 16 Blood Pressure 143/82 H 133/74 Pulse Oximetry 97 BMI result Body Mass Index 25.1 Labs Results: 01/13/22 01:38 01/13/22 01:38 Labs: Laboratory Results - last 48 hr 01/14/22 01/14/22 07:17 07:17 Estimat Average Glucose 103 Hemoglobin A1c % 5.2 Triglycerides 58 Cholesterol 152 LDL Cholesterol, Calc 108 HDL Cholesterol 33 Medications Medications Current Medications Acetaminophen (Acetaminophen 325 Mg Tablet) 650 mg PO Q6H PRN PRN Reason: Headache/Pain Mild Scale (1-3) Al Hydroxide/Mg Hydroxide (Magnesium Hydrox/Alum Hydrox 30 Ml Oral.Susp) 30 ml PO Q6H PRN PRN Reason: Heartburn/Nausea Bacitracin (Bacitracin Oint 14 Gm Tube) 1 appl TOPICAL BID [facility]; Protocol Last Admin: 01/14/22 22:04 Dose: Not Given Documented by: Buprenorphine/Naloxone (Buprenorphine/Naloxone 8/2 Mg Film) 1 film SUBLINGUAL DAILY [facility] Last Admin: 01/15/22 08:44 Dose: 1 film Documented by: Diphenhydramine HCl (Diphenhydramine Hcl 25 Mg Tablet) 50 mg PO Q4H PRN PRN Reason: agitation Haloperidol (Haloperidol 5 Mg Tablet) 5 mg PO Q4H PRN PRN Reason: agitation Hydroxyzine HCl (Hydroxyzine Hcl 25 Mg Tablet) 25 mg PO QID PRN PRN Reason: Anxiety Lorazepam (Lorazepam 1 Mg Tablet) 2 mg PO Q4H PRN PRN Reason: agitation Magnesium Hydroxide (Milk Of Magnesia 30 Ml Oral.Susp) 30 ml PO DAILY PRN PRN Reason: Constipation Nicotine Polacrilex (Nicotine Polacrilex 2 Mg Gum) 4 mg BUCCAL Q2H PRN PRN Reason: Nicotine Cravings Olanzapine (Olanzapine 5 Mg Tablet) 5 mg PO Q6H PRN PRN Reason: anxiety, agitation Last Admin: 01/14/22 08:39 Dose: 5 mg Documented by: Olanzapine (Olanzapine 5 Mg Tablet) 5 mg PO BID [facility] Last Admin: 01/15/22 08:45 Dose: 5 mg Documented by: Trazodone HCl (Trazodone Hcl 50 Mg Tablet) 50 mg PO BEDTIME PRN PRN Reason: Insomnia Last Admin: 01/13/22 22:14 Dose: 50 mg Documented by: Allergies Allergies Allergy/AdvReac Type Severity Reaction Status Date / Time No Known Allergies Allergy Unverified 06/24/20 17:10 [No Known Allergies*] Assessment & Plan Assessment & Plan (1) Delusional disorder: Status: Acute Code(s): F22 - Delusional disorders (2) MDD (major depressive disorder), recurrent, severe, with psychosis: Status: Acute Code(s): F33.3 - Major depressive disorder, recurrent, severe with psychotic symptoms Plan Pavan is a 36 yo male who presented to [facility] on 01/13/22 due to SI, HI, paranoid thoughts, and psychotic behavior. He arrived via a section 12a after his called 911. Pt does not have a formal psych hx, has had antidepressants and wellbutrin prescribed by PCP in the past, on suboxone and sober from opiates x 10 yrs. Per report, pt has decompensated in the past several months since finding out his cheated on him 10 yrs ago, increasingly paranoid, threatening, agitated, and impulsive. He has difficulty regulating emotions and is not re-directable. On admission, Pt insists that he does not have psychiatric issues and appears to have poor insight into his psychotic sx/ behavior. He is willing to trial medica tion for anxiety. 01/14 Patient calm on approach and says he is feeling better, says Zyprexa p.r.n. helped and agrees to schedule it. Says that altercation was just due to relational strife and denies any SI or HI 01/15 patient calm appreciative of treatment; feels Zyprexa is very helpful and wants to remain; video game script writer reviewed risks/side effects. Patient remembers having delusional thoughts that he was being poisoned by his family but says that is all resolved. He would like his involved in his treatment. Given the severity of this recent incident will be important to incorporate his 's perspective into patient's illness and progress. PLAN: Continue Zyprexa 5mg BID (found PRN calming and denied side-effects) Q15 min safety checks, CV Monitor response to medications. Monitor for safety in the milieu. Discharge on stabilization. Patient seen. Chart reviewed. Discussed with team. Obtain collateral contact info?as needed Patient educated on: medication risk/benefits and therapeutic strategies I spent minutes with the patient and/or on the patient floor today, greater than?50% of which was spent counseling/coordinating care. Patient educated on: diagnosis, medication risk/benefits and substance abuse Informed Consent: understands Reason for contiued inpatient stay Substantial Risk for: med/psych decompensation
[2022-01-15] MEDS: Bacitracin Oint 14 GM TUBE 1 APPL TOPICAL ×2 (13:56→21:53)
[2022-01-15 21:10] VITALS: BP 134/89; PULSE 74; TEMP 36.3; O2SAT 98
[2022-01-16 06:00] VITALS: BP 149/87; PULSE 50; RESP 18; TEMP 36.3; O2SAT 99
[2022-01-16] MEDS: OLANZapine 5 MG TABLET PO (08:38)
[2022-01-16] MEDS: Buprenorphine/Naloxone 8/2 mg FILM 1 FILM SUBLINGUAL (08:38)
[2022-01-16] MEDS: Bacitracin Oint 14 GM TUBE 1 APPL TOPICAL ×2 (08:39→20:56)
[2022-01-16] MEDS: Nicotine Polacrilex 2 MG GUM 4 MG BUCCAL ×2 (11:42→15:58)
--- NOTE | 2022-01-16 14:15 | P.PNPSI_ITS ---
Subjective Subjective Date of Service: 01/16/22 Reason For Visit: Paranoia Interim History: met with patient and his Tammy. Pt expressed paranoid delusions about his neighbors following him, spying on him,hacking into his phone and car GPS in a combined effort to cover up an affair his is having with the neighbors son and includes the sons parents, sister who lives in [place] and brother in law. Pt shared his belief that last year at a family vacation, his secretly someone from the family vacationing next door neighbor one evening when she was at the beach with the kids and he was at the house, in a wedding whose plans included these two families that don't know each other renting vacation houses next door. discussed pt's hx with work and struggles there; discussed family hx which includes maternal family side of depression; discussed course of paranoid thinking and how it's worsened; discussed marriatal strife. pt shared that he has some doubts about his beliefs and is starting to consider that he may be paranoid. However these delusions remain. That said, pt reports he's never felt so clear minded; he's been able to sleep and getting relief from these anxieties. Pt's agrees he's more calm. No SI or HI; pt agrees to increase Zyprexa dose and retract his 3 day. Mental Status Exam Mental Status Exam Narrative: Pt is alert and oriented; behavior is cooperative, friendly and calm; patient is not in distress; dressed in casual attire with adequate hygiene; mood is described as good and affect congruent, brighter, calm; eye contact appropriate; Speech is normal rate, volume and prosody and not pressured; no psychomotor agitation/retardation present; thought process is organized and goal directed; Thought content is on making sense of recent past event and staying stable; otherwise pertinent to relevant topics and without any delusional content, paranoid ideations or grandiosity; denies any SI/HI. There is no evidence of perceptual disturbance. ?Patients insight and judgment improving. Diagnostics Vital Signs (24Hr): Vital Signs - 24 hr 01/15/22 21:10 01/16/22 06:00 Temperature 97.4 F 97.3 F Pulse Rate 74 50 Respiratory Rate 18 Blood Pressure 134/89 149/87 H Pulse Oximetry 98 99 BMI result Body Mass Index 25.1 Labs Results: 01/13/22 01:38 01/13/22 01:38 Medications Medications Current Medications Acetaminophen (Acetaminophen 325 Mg Tablet) 650 mg PO Q6H PRN PRN Reason: Headache/Pain Mild Scale (1-3) Al Hydroxide/Mg Hydroxide (Magnesium Hydrox/Alum Hydrox 30 Ml Oral.Susp) 30 ml PO Q6H PRN PRN Reason: Heartburn/Nausea Bacitracin (Bacitracin Oint 14 Gm Tube) 1 appl TOPICAL BID [facility]; Protocol Last Admin: 01/16/22 08:39 Dose: 1 appl Documented by: Buprenorphine/Naloxone (Buprenorphine/Naloxone 8/2 Mg Film) 1 film SUBLINGUAL DAILY [facility] Last Admin: 01/16/22 08:38 Dose: 1 film Documented by: Diphenhydramine HCl (Diphenhydramine Hcl 25 Mg Tablet) 50 mg PO Q4H PRN PRN Reason: agitation Haloperidol (Haloperidol 5 Mg Tablet) 5 mg PO Q4H PRN PRN Reason: agitation Hydroxyzine HCl (Hydroxyzine Hcl 25 Mg Tablet) 25 mg PO QID PRN PRN Reason: Anxiety Lorazepam (Lorazepam 1 Mg Tablet) 2 mg PO Q4H PRN PRN Reason: agitation Magnesium Hydroxide (Milk Of Magnesia 30 Ml Oral.Susp) 30 ml PO DAILY PRN PRN Reason: Constipation Nicotine Polacrilex (Nicotine Polacrilex 2 Mg Gum) 4 mg BUCCAL Q2H PRN PRN Reason: Nicotine Cravings Last Admin: 01/16/22 11:42 Dose: 4 mg Documented by: Olanzapine (Olanzapine 5 Mg Tablet) 5 mg PO Q6H PRN PRN Reason: anxiety, agitation Last Admin: 01/15/22 17:29 Dose: 5 mg Documented by: Olanzapine (Olanzapine 5 Mg Tablet) 5 mg PO BID [facility] Last Admin: 01/16/22 08:38 Dose: 5 mg Documented by: Trazodone HCl (Trazodone Hcl 50 Mg Tablet) 50 mg PO BEDTIME PRN PRN Reason: Insomnia Last Admin: 01/13/22 22:14 Dose: 50 mg Documented by: Allergies Allergies Allergy/AdvReac Type Severity Reaction Status Date / Time No Known Allergies Allergy Unverified 06/24/20 17:10 [No Known Allergies*] Assessment & Plan Assessment & Plan (1) Delusional disorder: Status: Acute Code(s): F22 - Delusional disorders (2) MDD (major depressive disorder), recurrent, severe, with psychosis: Status: Acute Code(s): F33.3 - Major depressive disorder, recurrent, severe with psychotic symptoms Plan Pavan is a 36 yo male who presented to [facility] on 01/13/22 due to SI, HI, paranoid thoughts, and psychotic behavior. He arrived via a section 12a after his called 911. Pt does not have a formal psych hx, has had antidepressants and wellbutrin prescribed by PCP in the past, on suboxone and sober from opiates x 10 yrs. Per report, pt has decompensated in the past several months since finding out his cheated on him 10 yrs ago, increasingly paranoid, threatening, agitated, and impulsive. He has difficulty regulating emotions and is not re-directable. On admission, Pt insists that he does not have psychiatric issues and appears to have poor insight into his psychotic sx/ behavior. He is willing to trial medication for anxiety. 01/14 Patient calm on approach and says he is feeling better, says Zyprexa p.r.n. helped and agrees to schedule it. Says that altercation was just due to relational strife and denies any SI or HI 01/15 patient calm appreciative of treatment; feels Zyprexa is very helpful and wants to remain; specification writer reviewed risks/side effects. Patient remembers having delusional thoughts that he was being poisoned by his family but says that is all resolved. He would like his involved in his treatment. Given the severity of this recent incident will be important to incorporate his 's perspective into patient's illness and progress. PLAN: continue Zyprexa 5mg daily Increase Zyprexa to 10mg qhs (found PRN calming and denied side-effects) Q15 min safety checks, CV Monitor response to medications. Monitor for safety in the milieu. Discharge on stabilization. Patient seen. Chart reviewed. Discussed with team. Obtain collateral contact info?as needed Patient educated on: medication risk/benefits and therapeutic strategies I spent minutes with the patient and/or on the patient floor today, greater than?50% of which was spent counseling/coordinating care. Patient educated on: diagnosis Informed Consent: further education needed Reason for contiued inpatient stay Substantial Risk for: rapid decompensation
--- NOTE | 2022-01-16 14:27 | PC.NURSE ---
retracted 3 day notice
[2022-01-16 17:25] VITALS: BP 145/90; PULSE 75; TEMP 37.7
[2022-01-16] MEDS: OLANZapine 10 MG TABLET PO (20:55)
[2022-01-17 06:00] VITALS: BP 147/87; PULSE 79; RESP 17; TEMP 36.2; O2SAT 98
[2022-01-17] MEDS: Buprenorphine/Naloxone 8/2 mg FILM 1 FILM SUBLINGUAL (08:15)
[2022-01-17] MEDS: OLANZapine 5 MG TABLET PO ×2 (08:15→15:10)
[2022-01-17] MEDS: Bacitracin Oint 14 GM TUBE 1 APPL TOPICAL ×2 (08:15→20:44)
[2022-01-17] MEDS: Nicotine Polacrilex 2 MG GUM 4 MG BUCCAL ×3 (08:58→18:29)
[2022-01-17] MEDS: hydrOXYzine HCL 25 MG TABLET PO (09:44)
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
[2022-01-17 19:05] VITALS: BP 153/92; PULSE 76; TEMP 37.1; O2SAT 97
[2022-01-17] MEDS: OLANZapine 10 MG TABLET PO (20:37)
[2022-01-18 06:00] VITALS: BP 126/68; PULSE 58; RESP 16; TEMP 36.9; O2SAT 97
[2022-01-18] MEDS: Bacitracin Oint 14 GM TUBE 1 APPL TOPICAL (08:24)
[2022-01-18] MEDS: OLANZapine 5 MG TABLET PO ×2 (08:24→12:39)
[2022-01-18] MEDS: Buprenorphine/Naloxone 8/2 mg FILM 1 FILM SUBLINGUAL (08:24)
[2022-01-18] MEDS: Nicotine Polacrilex 2 MG GUM 4 MG BUCCAL ×3 (09:07→20:09)
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
[2022-01-18 18:00] VITALS: BP 130/82; PULSE 71; RESP 18; TEMP 37.3; O2SAT 96
[2022-01-18] MEDS: OLANZapine 10 MG TABLET PO (20:06)
[2022-01-19 06:00] VITALS: BP 132/93; PULSE 59; RESP 16; TEMP 36.4; O2SAT 99
[2022-01-19 07:00] VITALS: BMI 26.0
[2022-01-19] MEDS: Buprenorphine/Naloxone 8/2 mg FILM 1 FILM SUBLINGUAL (08:13)
[2022-01-19] MEDS: OLANZapine 5 MG TABLET PO ×2 (08:13→11:12)
[2022-01-19] MEDS: Nicotine Polacrilex 2 MG GUM 4 MG BUCCAL ×2 (09:11→20:07)
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
[2022-01-19] MEDS: cloNIDine HCL 0.1 MG TABLET PO (16:24)
[2022-01-19 17:08] VITALS: BP 136/95; PULSE 73; RESP 18; TEMP 37.1; O2SAT 97
[2022-01-19] MEDS: Bacitracin Oint 14 GM TUBE 1 APPL TOPICAL (20:07)
[2022-01-19] MEDS: OLANZapine 10 MG TABLET PO (20:07)
[2022-01-19] MEDS: hydrOXYzine HCL 25 MG TABLET PO (20:48)
[2022-01-20 06:00] VITALS: BP 132/68; PULSE 60; RESP 16; TEMP 35.9; O2SAT 98
[2022-01-20] MEDS: Buprenorphine/Naloxone 8/2 mg FILM 1 FILM SUBLINGUAL (09:01)
[2022-01-20] MEDS: OLANZapine 5 MG TABLET PO (09:01)
[2022-01-20] MEDS: Nicotine Polacrilex 2 MG GUM 4 MG BUCCAL (09:36)
[2022-01-20] MEDS: Bacitracin Oint 14 GM TUBE 1 APPL TOPICAL (09:37)
[2022-01-20] MEDS: cloNIDine HCL 0.1 MG TABLET PO (11:16)
--- NOTE | 2022-01-20 16:53 | HO.PSYCHPN ---
Subjective Subjective Date of Service: 01/20/22 Reason For Visit: Paranoia Subjective Notes: Conditional Voluntary Healthcare Proxy: No Guardianship: No Medical Problems Affecting Mental Status: No Interim History: Prepared for discharge. Review of medications and aftercare planning. Pt is positive, bright, feeling improved. Call from pt/pharmacy after discharge. Olanzapine was denied by insurance as it was over quantity limits Re-written as 10 mg HS and 5 mg bid (one a.m. one daily prn) and Anita believes this will be accepted. Discussed with pt. He verbalized understanding and will call with any further issues/questions. Medication Compliance: Yes Side effects from medications: No Attending Groups: Yes Review of Systems Acute medical concerns: No Medical Review of Systems: unchanged Review of Systems Psychiatric: Reports no additional psychiatric complaints Mental Status Exam Mental Status Exam Patient Appearance: Appropriate Patient Orientation: Person, Place, Time and Situation Level of Consciousness: Alert Patient Behavior: Appropriate, Talkative, Cooperative and Good Eye Contact Mood Description: Calm Affect Description: Calm Ability to Follow Directions: Good Speech Pattern: Spontaneous Speech Memory Description: Intact Hallucinations: None Delusions: Not Present Thought Process: Intact Thought Content: positive for Intact Judgement: Good Diagnostics Vital Signs (24Hr): Vital Signs - 24 hr 01/19/22 17:08 01/20/22 06:00 Temperature 98.8 F 96.7 F L Pulse Rate 73 60 Respiratory Rate 18 16 Blood Pressure 136/95 H 132/68 Pulse Oximetry 97 98 BMI result Body Mass Index 26.0 Labs Results: 01/13/22 01:38 01/13/22 01:38 Medications Allergies Allergies Allergy/AdvReac Type Severity Reaction Status Date / Time No Known Allergies Allergy Unverified 06/24/20 17:10 [No Known Allergies*] Assessment & Plan Assessment & Plan (1) Delusional disorder: Status: Acute Code(s): F22 - Delusional disorders (2) MDD (major depressive disorder), recurrent, severe, with psychosis: Status: Acute Code(s): F33.3 - Major depressive disorder, recurrent, severe with psychotic symptoms Plan Pavan is a 36 yo male who presented to [facility] ED on 01/13/22 due to SI, HI, paranoid thoughts, and psychotic behavior. He arrived via a section 12a after his called 911. Pt does not have a formal psych hx, has had antidepressants and wellbutrin prescribed by PCP in the past, on suboxone and sober from opiates x 10 yrs. Per report, pt has decompensated in the past several months since finding out his cheated on him 10 yrs ago, increasingly paranoid, threatening, agitated, and impulsive. He has difficulty regulating emotions and is not re-directable. On admission, Pt insists that he does not have psychiatric issues and appears to have poor insight into his psychotic sx/ behavior. He is willing to trial medication for anxiety. 01/14 Patient calm on approach and says he is feeling better, says Zyprexa p.r.n. helped and agrees to schedule it. Says that altercation was just due to relational strife and denies any SI or HI 01/15 patient calm appreciative of treatment; feels Zyprexa is very helpful and wants to remain; marketing underwriter reviewed risks/side effects. Patient remembers having delusional thoughts that he was being poisoned by his family but says that is all resolved. He would like his involved in his treatment. Given the severity of this recent incident will be important to incorporate his 's perspective into patient's illness and progress. 01/17 patient's insight has significantly improved and he realizes that several things he formally thought were true or paranoid delusions; he is starting to question many things that he formally thought were true and is seeing them as delusions. Patient feels that medications are helping and wants to continue. Later on, called to explained that does still have some concerns as patient has numerous knives and other similar weapons at the house which she and her children find frightening. Choral Director met with patient after he had met with his and patient did not mention this. Will discuss this with patient and see how he feels about it. 01/18 patient agrees that box of knives should be removed as it is frightening his and kids; agrees to discuss this with her. 01/19 patient remains in a good mood and paranoid delusions are resolved. Patient and had a good conversation today and feel that they are on the same page regarding to patient discharging home tomorrow and how they will navigate home life. Patient is going to permanently see render the box of knives. Both patient and have plans to engage in their own 1 1 therapy and couples therapy as well. Patient is optimistic, future oriented and looking forward to returning to his family. He denies any SI or HI and paranoid delusions remain resolved. Patient understands his diagnosis, that he has a delusional disorder and fully agrees that he needs medications to varghese it down. Feels medications have made a significant difference, denies any side effects and plans to continue taking them. DCF also met with patient and his and patient is resolved to submit to their requirements. Patient is not in imminent risk for harm to self or others and his request for discharge was honored. 01/20/22: Discharge. PLAN: clonidine prn; says helpful continue Zyprexa 5mg daily continue Zyprexa to 10mg qhs (found PRN calming and denied side-effects) Q15 min safety checks, CV Monitor response to medications. Monitor for safety in the milieu. Discharge on stabilization. Patient seen. Chart reviewed. Discussed with team. Obtain collateral contact info?as needed Patient educated on: medication risk/benefits and therapeutic strategies Choral Director thoroughly discussed risks/side effects of medication regimen including Zyprexa which patient understood, asked questions about and wants to continue with I spent minutes with the patient and/or on the patient floor today, greater than?50% of which was spent counseling/coordinating care. Reason for contiued inpatient stay Substantial Risk for: stable for discharge
== END 2022-01-20 14:15 | disposition home or self-care (01) | DRG 751 ==
LOC: HO.ED 15:25 → HO.PM5 20:05
PROVIDERS: Admitting Provider Psychiatry & Neurology Psychiatry; Emergency Provider Emergency Medicine; PCP Internal Medicine; Visit Provider Psychiatry & Neurology Psychiatry
DX: F33.3 Major depressive disorder, recurrent, severe with psychotic symptoms (principal); R45.851 Suicidal ideations; R45.850 Homicidal ideations; F11.20 Opioid dependence, uncomplicated; Z20.822 Contact with and (suspected) exposure to COVID-19; Z79.899 Other long term (current) drug therapy
CPT/HCPCS: 36415; 80048; 80061; 80076; 80307; 82077; 83036; 83735; 85025; 87635; 99285

== ENCOUNTER 2024-05-09 21:11 | Inpatient (IN) | payer MEDICAID, OTHER, SELFPAY ==
[2024-05-09 22:08] VITALS: BP 140/82; BP 146/90; PULSE 76; PULSE 96; RESP 18; TEMP 36.8; O2SAT 96; O2SAT 98; BMI 27.3
[2024-05-09 23:17] LABS: MANUAL DIFF FLAG NO
[2024-05-09 23:19] LABS: Basophils Absolute Auto 0.1 X10*3/uL (0.0-0.2); Basophils Percent Auto 0.5 % (0-2); Eosinophils Percent Auto 0.1 % (0-4); Hematocrit 41.7 % (42.0-52.0); Hemoglobin 14.4 g/dl (14.0-18.0); Imm Gran Abs Auto 0.02 X10*3/uL (0.00-0.03); Imm Gran Pct Auto 0.2 % (0.0-0.4); Lymphocytes Absolute Auto 1.1 X10*3/uL (1.2-4.9); Lymphocytes Percent Auto 10.4 % (20-40); Mean Corpuscular HGB Conc 34.5 g/dl (31.0-36.0); Mean Corpuscular Hemoglobin 32.3 pg (27.0-33.0); Mean Corpuscular Volume 93.5 fL (80.0-98.0); Mean Platelet Volume 10.1 fL (9.4-12.4); Monocytes Absolute Auto 0.6 X10*3/uL (0.1-1.2); Monocytes Percent Auto 5.9 % (2-11); Neutrophils Percent Auto 82.9 % (45-73); Platelet Count 229 X10*3/uL (160-400); Red Blood Count 4.46 X10*6/uL (4.60-5.80); Red Cell Distribution Width 13.1 % (11.0-16.0); White Blood Count 10.9 X10*3/uL (4.8-10.8)
[2024-05-09 23:33] LABS: Ethanol < 10 mg/dL
[2024-05-09 23:33] LABS: Amphetamine Screen Urine Not Detected (Not Detect); Barbiturates, Urine Not Detected (Not Detect); Benzodiazepines Screen Urine Not Detected (Not Detect); Buprenorphine Scr Positive (Not Detect); Cannabinoid Screen Urine POSITIVE (Not Detect); Cocaine Screen Urine Not Detected (Not Detect); Fentanyl, urine Not Detected (Not Detect); Methadone Screen, Urine Not Detected (Not Detect); Opiate Screen Urine Not Detected (Not Detect); Oxycodone Screen Urine Not Detected (Not Detect); Phencyclidine Screen Urine Not Detected (Not Detect)
[2024-05-09 23:34] LABS: Alanine Aminotransferase 13 U/L (0-40); Albumin Level 4.5 g/dL (3.5-5.0); Alkaline Phosphatase 71 U/L (39-117); Anion Gap 12 (12-20); Aspartate Amino Transferase 16 U/L (5-37); Bilirubin Total 0.7 mg/dL (0.0-1.0); Blood Urea Nitrogen 7 mg/dL (9-16); Calcium 9.4 mg/dL (8.4-10.2); Carbon Dioxide 26 mmol/L (22-29); Chloride 108 mmol/L (96-108); Creatinine Clr Calc Pharmacy 131.7; Estimated Glomerular Filt Rate > 60; Glucose Random 109 mg/dL (60-115); Potassium 4.3 mmol/L (3.3-5.1); Sodium 142 mmol/L (135-145); Total Protein 7.3 g/dL (6.5-8.0)
--- NOTE | 2024-05-09 23:56 | ED.PSYCH ---
HPI - Psych General Chief Complaint: Psychiatric Symptoms Stated Complaint: section 12 by police, auditory and visual hallucin Time Seen by Provider: 05/09/24 21:38 Source: patient and EMS Mode of arrival: EMS Limitations: no limitations History of Present Illness ED Provider: Dr. Eva Silva HPI Narrative: patient comes to the emergency room via ambulance from home. According to the patient, he had an argument with his girlfriend who escalated the argument out of proportion. Patient states that his girlfriend wanted him to get out of the house, therefore she called 911 and told them that the patient was having auditory and visual hallucinations. Patient states that he has not had any hallucinations, he is compliant with his medications. Patient did not threaten his girlfriend or anyone in any way. Patient denies SI or HI. Patient angry that his girlfriend light to get him the hospital. Patient agreed that the police believes his girlfriend and Section 12. Related Data Home Medications ?Medication ?Instructions ?Recorded ?Confirmed buprenorphine 8 mg-naloxone 2 mg 1 strip sublingual DAILY 01/13/22 05/09/24 sublingual film (Suboxone) methylphenidate HCl 20 mg 20 mg PO BID 05/09/24 05/09/24 tablet,extended release Previous Rx's ?Medication ?Instructions ?Recorded nicotine (polacrilex) 2 mg gum 4 mg buccal Q2H PRN Nicotine 01/19/22 Cravings 30 days #100 ea Allergies Allergy/AdvReac Type Severity Reaction Status Date / Time No Known Allergies Allergy Unverified 05/09/24 22:15 [No Known Allergies*] Review of Systems Review of Systems: Constitutional : No Weight loss, No Fever, No Chills, No Night Sweats, No Fatigue, No Malaise ENT/Mouth : No Hearing loss, No Ear Pain, No Nasal Congestion, No Sinus Pain, No Hoarseness, No sore throat, No Rhinorrhea, No Swallowing Difficulty Eyes: No Eye Pain, No Swelling, No Redness, No Foreign Body, No Discharge, No Vision Changes Cardiovascular : No Chest Pain, No SOB, No Dyspnea on Exertion, No Orthopnea, No Edema, No Palpitations Respiratory : No Cough, No Sputum, No Wheezing, No Smoke Exposure, No Dyspnea Gastrointestinal : No Nausea, No Vomiting, No Diarrhea, No Constipation, No abdominal Pain, No Hematochezia, No Melena Genitourinary : no irregular bleeding, No Dysuria, No Urinary Frequency, No Hematuria, No Urinary Incontinence, No Urgency, No Flank Pain, No Urinary Flow Changes, No Hesitancy Musculoskeletal : No joint pain, No Myalgias, No Joint Swelling Skin : No Skin Lesions, No rash Neuro : No Weakness, No Numbness, No Paresthesias, No Loss of Consciousness, No Dizziness, No Headache Psych : No Anxiety/Panic, No Depression, No SI/HI/AH/VH, agrees to having an argument with his girlfriend at home Heme/Lymph: No Bruising, No Bleeding,No Lymphadenopathy Endocrine : No Polyuria, No Polydipsia, No Temperature Intolerance [facility] Past Medical History Medical History Depression Opiate use Social History Social History (Updated 01/13/22 @ 01:22 by Janay Whitt DO) Household Members: Spouse and Children Housing: House Do you presently have visiting nurse or other home services: No Patient Tobacco Use Status: Tobacco use Unknown e-Cigarette/Vaping Use: Currently Using Second Hand Smoke Exposure: No Substance Use Type: Former Substance User Advance Directives: No Advance Directives Information Provided: No Do you have a plan to hurt others: No Plan service: No Sexual orientation: Did not discuss Physical Exam Vital Signs: Vital Signs: Last Vital Signs Temp 98.3 F 05/09/24 22:08 Pulse 76 05/09/24 22:08 Resp 18 05/09/24 22:08 BP 140/82 H 05/09/24 22:08 Pulse Ox 98 05/09/24 22:08 O2 Del Method Room Air 05/09/24 22:08 BMI result Body Mass Index 27.3 Const: Other: Appearance: Alert. Oriented X3. No acute distress. Eyes: Pupils equal, round and reactive to light. ENT: Pharynx normal. Neck: Normal inspection. Neck supple. No lymph nodes noted. No crepitus CVS: Normal heart rate and rhythm. Pulses normal. Normal S1 and S2 Respiratory: No respiratory distress. Breath sounds normal. No Wheezing. No rales Abdomen: Soft and nontender. No rigidity. No distention. Skin: Skin warm and dry. Normal skin color. Normal skin turgor. healing abrasions on the nose Extremities: No lower extremity edema. No Lacerations. No Rash Neuro: Oriented X 3. No motor deficit. No sensory deficit. Moving all extremities. No slurred speech. CN 2 through 12 grossly intact Psych: calm, cooperative, normal affect Medical Decision Making Medical Decision Making [facility] Narrative: - my interpretation of labs, white blood cell count slightly elevated, 10.9, otherwise normal hematology at baseline, normal chemistry, positive for buprenorphine and marijuana - care team consult pending - physician observation started at midnight - patient is on a Section 12 that was started by police department - at 11:12 I spoke with the care team. They spoke with the patient's , he is very paranoid, very similar to the presentation of 2 years ago. Patient thinks that his is cheating on him, poisoning his food, thinks his is inserting chips under his skin. Also seems that patient is hearing voices Differential Diagnosis Differential Diagnoses: The differential diagnosis associated with the presentation includes ( delusional, anxiety, schizophrenia) Lab Data 05/09/24 23:12 05/09/24 23:12 Labs: Lab Results 05/09/24 05/09/24 Range/Units 23:03 23:12 WBC 10.9 H (4.8-10.8) X10*3/uL RBC 4.46 L (4.60-5.80) X10*6/uL Hgb 14.4 (14.0-18.0) g/dl Hct 41.7 L (42.0-52.0) % MCV 93.5 (80.0-98.0) fL MCH 32.3 (27.0-33.0) pg MCHC 34.5 (31.0-36.0) g/dl RDW 13.1 (11.0-16.0) % Plt Count 229 (160-400) X10*3/uL MPV 10.1 (9.4-12.4) fL Immature Gran % (Auto) 0.2 (0.0-0.4) % Neut % (Auto) 82.9 H (45-73) % Lymph % (Auto) 10.4 L (20-40) % [place] % (Auto) 5.9 (2-11) % Eos % (Auto) 0.1 (0-4) % Baso % (Auto) 0.5 (0-2) % Lymph # (Auto) 1.1 L (1.2-4.9) X10*3/uL [place] # (Auto) 0.6 (0.1-1.2) X10*3/uL Eos # (Auto) 0.0 (0.0-0.4) X10*3/uL Baso # (Auto) 0.1 (0.0-0.2) X10*3/uL Abs Immat Gran (auto) 0.02 (0.00-0.03) X10*3/uL Absolute Neuts (auto) 9.0 H (2.0-8.3) x10*3/uL Absolute Nucleated RBC 0.000 (0.0-0.012) X10*3/uL Nucleated RBC % (auto) 0.0 (0.0-0.2) /100WBC Sodium 142 (135-145) mmol/L Potassium 4.3 (3.3-5.1) mmol/L Chloride 108 (96-108) mmol/L Carbon Dioxide 26 (22-29) mmol/L Anion Gap 12 (12-20) BUN 7 L (9-16) mg/dL Creatinine 0.76 (0.5-1.4) mg/dL Estim Creat Clear Calc 131.7 Estimated GFR > 60 Random Glucose 109 (60-115) mg/dL Calcium 9.4 (8.4-10.2) mg/dL Total Bilirubin 0.7 (0.0-1.0) mg/dL AST 16 (5-37) U/L ALT 13 (0-40) U/L Alkaline Phosphatase 71 (39-117) U/L Total Protein 7.3 (6.5-8.0) g/dL Albumin 4.5 (3.5-5.0) g/dL Urine Opiates Screen Not Detected (Not Detect) Ur Buprenorphine Scrn Positive H (Not Detect) ng/mL Ur Oxycodone Screen Not Detected (Not Detect) ng/mL Urine Methadone Screen Not Detected (Not Detect) ng/mL Urine Fentanyl Screen Not Detected (Not Detect) Ur Barbiturates Screen Not Detected (Not Detect) Ur Phencyclidine Scrn Not Detected (Not Detect) Ur Amphetamines Screen Not Detected (Not Detect) U Benzodiazepines Scrn Not Detected (Not Detect) Urine Cocaine Screen Not Detected (Not Detect) U Marijuana (THC) Screen POSITIVE H (Not Detect) Ethyl Alcohol < 10 mg/dL Critical Care Time Critical Care Time Critical Care Time: Yes Total Critical Care Time: 30 Attestation: I have personally provided critical care time. Time includes review of lab data, radiology results, discussion with consultants, and monitoring for potential decompensation. Intervention performed as documented. Discharge Plan Discharge Clinical Impression: Auditory hallucination Patient Disposition: Still a Patient Prescriptions: No Action buprenorphine-naloxone [Suboxone] 8-2 mg film 1 strip sublingual DAILY nicotine (polacrilex) 2 mg Gum 4 mg buccal Q2H PRN (Reason: Nicotine Cravings) 30 Days Qty: 100 0RF methylphenidate HCl 20 mg tablet extended release 20 mg PO BID Interventions: Bowman-Suicide Risk Severity Scale Last Done: 05/10/24 00:02 Print Language: Burkinan
--- NOTE | 2024-05-10 00:01 | PC.NURSE ---
no fax rec'd from [facility]. called them and asked [phone] they said they faxed and recd confirmatyion, waiting for repeat fax.
--- NOTE | 2024-05-10 02:06 | PC.NURSE ---
patient had stated in admission he had not yet taken his suboxone dose today. t/w just approached patient who appears to be asleep if he wanted medication, patient did not respond to soft calling of his name times two, will continue to monitor should client awaken.
--- NOTE | 2024-05-10 07:25 | PC.NURSE ---
Assumed care of patient at 0645. Patient is observed resting quietly in their bed. No signs of distress observed and breathing is even and unlabored.
--- NOTE | 2024-05-10 10:49 | PHA.MEDREC ---
Pharmacy Consult ? Medication Reconciliation Pharmacy has completed the medication reconciliation. [facility] HAS REVIEWED THE MED REC DONE BY NURSING. IT WAS NOTED THAT THE CLAIM HISTORY SHOWS A FILL FOR LAMOTRIGINE RECENTLY SO ALENA PRAKASH CONFIRMED WITH THE PATIENT THAT HE HAS NOT PICKED THIS MEDICATION UP OR STARTED USING IT YET. THIS INFORMATION IS BEING FORWARDED TO THE PROVIDER.
[2024-05-10 13:16] VITALS: BP 133/88; PULSE 60; RESP 18; TEMP 36.6; O2SAT 99
[2024-05-10] MEDS: Buprenorphine/Naloxone 8/2 mg FILM 1 FILM SUBLINGUAL (13:19)
[2024-05-10 13:53] VITALS: BP 137/99; PULSE 55; RESP 16; TEMP 36.9; O2SAT 99
[2024-05-10 13:54] VITALS: BMI 26.3
[2024-05-10] MEDS: Nicotine Polacrilex 2 MG GUM 4 MG BUCCAL ×2 (14:08→18:08)
[2024-05-10] MEDS: hydrOXYzine HCL 25 MG TABLET PO (14:43)
[2024-05-10 16:28] VITALS: BP 151/79; PULSE 44; RESP 16; O2SAT 99
--- NOTE | 2024-05-10 16:32 | PC.ADMIT ---
Pavan was admitted to at 1:45pm from the [facility] for treatment of psychosis. He has a history of?IPLOC?here on M5 2 years ago for SI/HI. He carries a dx of Bipolar disorder, ADHD, anxiety, and opioid abuse. He reports being clean from heroin use for 13 years and takes daily Suboxone. His tox screen was positive for THC and buprenorphine. Pt? has not been taking any medications for mood stabilization and over the past 2 months has been decompensating.? He was fired from his job 2 months ago and since then? things have gone downhill. Shortly after arrival to the unit he signed a CV with Kaitlin Borjas. Safety and skin check performed and noted 2 scabbed areas on each side of the nose bridge otherwise unremarkable. Pt presented to [facility] overnight via EMS (in handcuffs) after his partner Tammy reported? he was having AVH and threatened her. Per CARE team notes his partner reports Pavan became aggressive and delusional making threats and yelling at random neighbors whom he believes are spying on him . Furthermore his partner Tammy reports he has been paranoid and stockpiling knives, machetes, and survival gear.??Pavan presently denies SI/HI/AVH.? Presents as pleasant, cooperative, and eager to get help. He reports that he has become paranoid and delusional in the past when he isn't sleeping but feels he slept?well in the?ED overnight. He reports that over the past year he has lost 65 lbs unintentionally and attributes this to stopping prozac. He vapes nicotine and smokes marijuana regularly and has requested NRT. He was participative in the admission process, answering all questions appropriately. He is alert and oriented to self, place, and time and states that he knows he needs help and wishes he hadn't waited so long. Medicated with atarax for anxiety with good effect and spending time in the kitchen watching TV with peers.?
[2024-05-10 20:00] VITALS: BP 121/62; PULSE 57; RESP 14; TEMP 37.1; O2SAT 99
--- NOTE | 2024-05-11 | ECG_ITS ---
Test Reason : bradycardia Blood Pressure : / mmHG Vent. Rate : 057 BPM Atrial Rate : 057 BPM P-R Int : 142 ms QRS Dur : 096 ms QT Int : 450 ms P-R-T Axes : 052 057 054 degrees QTc Int : 438 ms Sinus bradycardia Otherwise normal ECG When compared with ECG of 01-DEC-2003 18:34, No significant change was found Referred By: Iker Herr Electronically Signed By:PRUDENCE MCGOWAN MD
[2024-05-11 08:00] VITALS: BP 125/68; PULSE 49; RESP 18; TEMP 36.9; O2SAT 97
--- NOTE | 2024-05-11 08:39 | P.HPPS_ITS ---
[facility] Date of Service: 05/11/24 Chief Complaint: psychosis Sources of Information: patient interviewed and chart reviewed HPI Subjective Notes: Conditional Voluntary Narrative: Met with patient. Reviewed chart. Discussed with nursing. Overall reports wanting to get help with medications, get emotions back in check. Reports. Medications around 18 months ago which included olanzapine, clonidine and hydroxyzine. Main concern with olanzapine was weight gain and has since lost 65 lb. However has noted that much more anxious, tense, racing thoughts, decreased sleep, impulsivity and less of a filter and intimidating to people based off his comments verbally. Also poor appetite. Does have a documented history of bipolar disorder with manic episode and psychosis around 2 years ago. No suicidal thoughts. Stable on Suboxone for the last 13 years and maintain sobriety throughout that time. Very motivated around engaging in treatment. We discussed Abilify and hydroxyzine as needed. Past Psychiatric History: One prior admission 2 years ago with a manic episode and psychosis. -Per chart, pt cut himself in front of his partner when he found out she cheated on him 10 yrs ago. -Past meds: Wellbutrin (wt gain), ?a lot of antidepressants (from PCP) Medical Evaluation Reviewed: Yes EKG SINUS DIOGO (58) OTHERWISE [facility] Medical History Depression Opiate use Family History: -Father: alcoholic. Mother: anxiety and depression Social History: Living with partner of 21 years. Two children age 19 and 13. 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 Reported in his words getting in his own way and quitting. Substance History: Sober from opiates for 13 years on Suboxone Trauma History: -Per chart, pt had a chaotic upbringing. Diagnostics Vital Signs (24Hr): Vital Signs - 24 hr 05/10/24 13:16 05/10/24 13:53 05/10/24 16:28 Temperature 98 F 98.5 F Pulse Rate 60 55 44 L Respiratory Rate 18 16 16 Blood Pressure 133/88 137/99 H 151/79 H Pulse Oximetry 99 99 99 Oxygen Delivery Method Room Air Room Air Room Air 05/10/24 20:00 05/11/24 08:00 Temperature 98.7 F 98.5 F Pulse Rate 57 49 L Respiratory Rate 14 18 Blood Pressure 121/62 125/68 Pulse Oximetry 99 97 Oxygen Delivery Method Room Air BMI result Body Mass Index 26.3 Labs 05/09/24 23:12 05/09/24 23:12 Labs: Laboratory Results - last 48 hr 05/09/24 05/09/24 23:03 23:12 WBC 10.9 H RBC 4.46 L Hgb 14.4 Hct 41.7 L MCV 93.5 MCH 32.3 MCHC 34.5 RDW 13.1 Plt Count 229 MPV 10.1 Immature Gran % (Auto) 0.2 Neut % (Auto) 82.9 H Lymph % (Auto) 10.4 L [place] % (Auto) 5.9 Eos % (Auto) 0.1 Baso % (Auto) 0.5 Lymph # (Auto) 1.1 L [place] # (Auto) 0.6 Eos # (Auto) 0.0 Baso # (Auto) 0.1 Abs Immat Gran (auto) 0.02 Absolute Neuts (auto) 9.0 H Absolute Nucleated RBC 0.000 Nucleated RBC % (auto) 0.0 Sodium 142 Potassium 4.3 Chloride 108 Carbon Dioxide 26 Anion Gap 12 BUN 7 L Creatinine 0.76 Estim Creat Clear Calc 131.7 Estimated GFR > 60 Random Glucose 109 Calcium 9.4 Total Bilirubin 0.7 AST 16 ALT 13 Alkaline Phosphatase 71 Total Protein 7.3 Albumin 4.5 Urine Opiates Screen Not Detected Ur Buprenorphine Scrn Positive H Ur Oxycodone Screen Not Detected Urine Methadone Screen Not Detected Urine Fentanyl Screen Not Detected Ur Barbiturates Screen Not Detected Ur Phencyclidine Scrn Not Detected Ur Amphetamines Screen Not Detected U Benzodiazepines Scrn Not Detected Urine Cocaine Screen Not Detected U Marijuana (THC) Screen POSITIVE H Ethyl Alcohol < 10 Meds/Allergies Meds Home Medications ?Medication ?Instructions ?Recorded ?Confirmed ?Type buprenorphine 8 mg-naloxone 2 mg 1 strip sublingual DAILY 01/13/22 05/09/24 History sublingual film (Suboxone) methylphenidate HCl 20 mg 20 mg PO BID 05/09/24 05/09/24 History tablet,extended release Allergies Allergies Allergy/AdvReac Type Severity Reaction Status Date / Time No Known Allergies Allergy Unverified 05/09/24 22:15 [No Known Allergies*] Mental Status Exam Mental Status Exam Narrative: Pleasant. Engaged. Casually dressed and presented. Good hygiene. Anxious. No SI. No HI. Organized. No psychosis. Insight and judgment good Assessment & Plan Assessment & Plan (1) Bipolar disorder, curr episode manic w/o psychotic features, moderate: Status: Acute Code(s): F31.12 - Bipolar disorder, current episode manic without psychotic features, moderate Plan Presents with worsening mental state in the context of being off medications for 18 months. Mixed symptoms of low mood, anxiety, decreased appetite, decreased need for sleep, flight of ideas, impulsivity and irritability. Has maintain sobriety. Psychosocial stressors. Will restart medications but rather than olanzapine utilize Abilify given weight gain in the past. Hydroxyzine as needed. Will also need to reestablish outpatient services Patient educated on: diagnosis and medication risk/benefits Informed Consent: understands Reason for continued inpatient stay Substantial Risk for: inability to function Statement Statement: I have reviewed the history and physical and performed a pertinent examination on my patient. No changes have occurred unless specified. If the History and Physical was not performed prior to admission, the Hospitalist's service will be consulted for completing the admission physical. Time Spent With Patient Time: Total time managing care of this patient today ____ minutes.
[2024-05-11] MEDS: Buprenorphine/Naloxone 8/2 mg FILM 1 FILM SUBLINGUAL (08:50)
[2024-05-11] MEDS: hydrOXYzine HCL 25 MG TABLET PO ×2 (10:00→20:11)
[2024-05-11] MEDS: Nicotine Polacrilex 2 MG GUM 4 MG BUCCAL ×2 (10:00→18:24)
[2024-05-11] MEDS: ARIPiprazole 5 MG TABLET PO (13:21)
[2024-05-11 19:37] VITALS: BP 124/75; PULSE 58; TEMP 35.8; O2SAT 98
[2024-05-12 08:00] VITALS: BP 136/77; PULSE 41; TEMP 36.4; O2SAT 98
[2024-05-12] MEDS: ARIPiprazole 5 MG TABLET PO (09:03)
--- NOTE | 2024-05-12 10:18 | HO.PSYCHPN ---
Subjective Subjective Date of Service: 05/12/24 Reason For Visit: psychosis Subjective Notes: Conditional Voluntary Interim History: Pt reports feeling better than when he came here. He reports feeling better on abilify. He reports he is sleeping better. No SI/HI. no VH/AH. no overt delusions. He reports that prior to coming he was no sleeping, pacing at night, talking to himself. 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 Memory/cog: alert, oriented x 3. grossly intact to conversational testing. Diagnostics Vital Signs (24Hr): Vital Signs - 24 hr 05/11/24 19:37 05/12/24 08:00 Temperature 96.4 F L 97.6 F Pulse Rate 58 41 L Blood Pressure 124/75 136/77 Pulse Oximetry 98 98 Oxygen Delivery Method Room Air Room Air BMI result Body Mass Index 26.3 Labs 05/09/24 23:12 05/09/24 23:12 Medications Medications Current Medications Acetaminophen (Acetaminophen 325 Mg Tablet) 650 mg PO Q6H PRN PRN Reason: Headache/Pain Mild Scale (1-3) Al Hydroxide/Mg Hydroxide (Magnesium Hydrox/Alum Hydrox 30 Ml Oral.Susp) 30 ml PO Q6H PRN PRN Reason: Heartburn/Nausea Aripiprazole (Aripiprazole 5 Mg Tablet) 5 mg PO DAILY [facility] Last Admin: 05/12/24 09:03 Dose: 5 mg Buprenorphine/Naloxone (Buprenorphine/Naloxone 8/2 Mg Film) 1 film SUBLINGUAL DAILY@1100 [facility] Hydroxyzine HCl (Hydroxyzine Hcl 25 Mg Tablet) 25 mg PO Q6H PRN PRN Reason: Anxiety Last Admin: 05/11/24 20:11 Dose: 25 mg Magnesium Hydroxide (Milk Of Magnesia 30 Ml Oral.Susp) 30 ml PO DAILY PRN PRN Reason: Constipation Nicotine Polacrilex (Nicotine Polacrilex 2 Mg Gum) 4 mg BUCCAL Q2H PRN PRN Reason: Nicotine Cravings Last Admin: 05/11/24 18:24 Dose: 4 mg Pt Own ( Methylphenidate Hcl 20 Mg Tablet Extended Release) 20 mg PO BID@0900,1500 [facility] Last Admin: 05/12/24 08:58 Dose: 20 mg Trazodone HCl (Trazodone Hcl 50 Mg Tablet) 50 mg PO BEDTIME MRX1 PRN PRN Reason: Insomnia Allergies Allergies Allergy/AdvReac Type Severity Reaction Status Date / Time No Known Allergies Allergy Unverified 05/09/24 22:15 [No Known Allergies*] Assessment & Plan Assessment & Plan (1) Bipolar disorder, curr episode manic w/o psychotic features, moderate: Status: Acute Code(s): F31.12 - Bipolar disorder, current episode manic without psychotic features, moderate Plan Presents with worsening mental state in the context of being off medications for 18 months. Mixed symptoms of low mood, anxiety, decreased appetite, decreased need for sleep, flight of ideas, impulsivity and irritability. Has maintain sobriety. Psychosocial stressors. Will restart medications but rather than olanzapine utilize Abilify given weight gain in the past. Hydroxyzine as needed. Will also need to reestablish outpatient services PLAN 05/12 continue tx. Reason for continued inpatient stay Substantial Risk for: inability to function Time Spent With Patient Time: Total time managing care of this patient today ____ minutes.
[2024-05-12] MEDS: Buprenorphine/Naloxone 8/2 mg FILM 1 FILM SUBLINGUAL (11:05)
[2024-05-12] MEDS: Nicotine 21 MG PATCH.TD24 TRANSDERMA (11:47)
[2024-05-12] MEDS: Nicotine Polacrilex 2 MG GUM 4 MG BUCCAL ×3 (11:48→20:59)
[2024-05-12] MEDS: hydrOXYzine HCL 25 MG TABLET PO ×2 (13:29→20:16)
[2024-05-12 20:00] VITALS: BP 134/78; PULSE 59; TEMP 36.7; O2SAT 98
--- NOTE | 2024-05-12 22:01 | PC.NURSE ---
Patient medicated with Atarax 25 mg for c/o of mild anxiety at 2016 with good effect.
[2024-05-13 08:00] VITALS: BP 140/87; PULSE 44; RESP 17; TEMP 36.4; O2SAT 97
[2024-05-13] MEDS: Nicotine Polacrilex 2 MG GUM 4 MG BUCCAL ×3 (08:28→18:10)
[2024-05-13] MEDS: ARIPiprazole 5 MG TABLET PO (08:28)
[2024-05-13] MEDS: Nicotine 21 MG PATCH.TD24 TRANSDERMA (08:28)
[2024-05-13] MEDS: Buprenorphine/Naloxone 8/2 mg FILM 1 FILM SUBLINGUAL (11:02)
--- NOTE | 2024-05-13 11:15 | P.PNPSI_ITS ---
Subjective Subjective Date of Service: 05/13/24 Reason For Visit: psychosis Interim History: Pt reports feeling better than when he came here. He reports feeling better on abilify. He reports he is sleeping better. No SI/HI. no VH/AH. no overt delusions. He reports that prior to coming he was no sleeping, pacing at night, talking to himself. 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 Memory/cog: alert, oriented x 3. grossly intact to conversational testing. Diagnostics Vital Signs (24Hr): Vital Signs - 24 hr 05/12/24 20:00 05/13/24 08:00 Temperature 98.1 F 97.6 F Pulse Rate 59 44 L Respiratory Rate 17 Blood Pressure 134/78 140/87 H Pulse Oximetry 98 97 Oxygen Delivery Method Room Air Room Air BMI result Body Mass Index 26.3 Labs 05/09/24 23:12 05/09/24 23:12 Medications Medications Current Medications Acetaminophen (Acetaminophen 325 Mg Tablet) 650 mg PO Q6H PRN PRN Reason: Headache/Pain Mild Scale (1-3) Al Hydroxide/Mg Hydroxide (Magnesium Hydrox/Alum Hydrox 30 Ml Oral.Susp) 30 ml PO Q6H PRN PRN Reason: Heartburn/Nausea Aripiprazole (Aripiprazole 5 Mg Tablet) 5 mg PO DAILY [facility] Last Admin: 05/13/24 08:28 Dose: 5 mg Buprenorphine/Naloxone (Buprenorphine/Naloxone 8/2 Mg Film) 1 film SUBLINGUAL DAILY@1100 [facility] Last Admin: 05/13/24 11:02 Dose: 1 film Hydroxyzine HCl (Hydroxyzine Hcl 25 Mg Tablet) 25 mg PO Q6H PRN PRN Reason: Anxiety Last Admin: 05/12/24 20:16 Dose: 25 mg Magnesium Hydroxide (Milk Of Magnesia 30 Ml Oral.Susp) 30 ml PO DAILY PRN PRN Reason: Constipation Nicotine (Nicotine 21 Mg Patch.Td24) 21 mg TRANSDERMA DAILY [facility] Last Admin: 05/13/24 08:28 Dose: 21 mg Nicotine Polacrilex (Nicotine Polacrilex 2 Mg Gum) 4 mg BUCCAL Q2H PRN PRN Reason: Nicotine Cravings Last Admin: 05/13/24 08:28 Dose: 4 mg Pt Own ( Methylphenidate Hcl 20 Mg Tablet Extended Release) 20 mg PO BID@0900,1500 [facility] Last Admin: 05/12/24 08:58 Dose: 20 mg Trazodone HCl (Trazodone Hcl 50 Mg Tablet) 50 mg PO BEDTIME MRX1 PRN PRN Reason: Insomnia Allergies Allergies Allergy/AdvReac Type Severity Reaction Status Date / Time No Known Allergies Allergy Unverified 05/09/24 22:15 [No Known Allergies*] Assessment & Plan Assessment & Plan (1) Bipolar disorder, curr episode manic w/o psychotic features, moderate: Status: Acute Code(s): F31.12 - Bipolar disorder, current episode manic without psychotic features, moderate Plan Presents with worsening mental state in the context of being off medications for 18 months. Mixed symptoms of low mood, anxiety, decreased appetite, decreased need for sleep, flight of ideas, impulsivity and irritability. Has maintain sobriety. Psychosocial stressors. Will restart medications but rather than olanzapine utilize Abilify given weight gain in the past. Hydroxyzine as needed. Will also need to reestablish outpatient services PLAN 05/13 continue tx. Reason for continued inpatient stay Substantial Risk for: stable for discharge Time Spent With Patient Time: Total time managing care of this patient today ____ minutes.
[2024-05-13] MEDS: hydrOXYzine HCL 25 MG TABLET PO ×2 (13:17→21:50)
[2024-05-13 20:00] VITALS: BP 141/81; PULSE 53; RESP 16; TEMP 36.9; O2SAT 96
[2024-05-14 08:00] VITALS: BP 139/85; PULSE 48; TEMP 36.3; O2SAT 100
[2024-05-14 09:24] VITALS: PULSE 68
[2024-05-14] MEDS: Nicotine 21 MG PATCH.TD24 TRANSDERMA (09:24)
[2024-05-14] MEDS: ARIPiprazole 5 MG TABLET PO (09:25)
[2024-05-14] MEDS: Nicotine Polacrilex 2 MG GUM 4 MG BUCCAL ×4 (09:27→21:00)
[2024-05-14] MEDS: Buprenorphine/Naloxone 8/2 mg FILM 1 FILM SUBLINGUAL (11:17)
--- NOTE | 2024-05-14 14:42 | P.PNPSI_ITS ---
Subjective Subjective Date of Service: 05/14/24 Reason For Visit: psychosis Subjective Notes: Conditional Voluntary Healthcare Proxy: No Guardianship: No Medical Problems Affecting Mental Status: No Interim History: Pt planning discharge for 05/15/24. Agrees with plan of care and believes it to be in his best interest. 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 Memory/cog: alert, oriented x 3. grossly intact to conversational testing. Diagnostics Vital Signs (24Hr): Vital Signs - 24 hr 05/13/24 20:00 05/14/24 08:00 05/14/24 09:24 Temperature 98.5 F 97.3 F Pulse Rate 53 48 L 68 Respiratory Rate 16 Blood Pressure 141/81 H 139/85 Pulse Oximetry 96 100 Oxygen Delivery Method Room Air Room Air BMI result Body Mass Index 26.3 Labs 05/09/24 23:12 05/09/24 23:12 Medications Medications Current Medications Acetaminophen (Acetaminophen 325 Mg Tablet) 650 mg PO Q6H PRN PRN Reason: Headache/Pain Mild Scale (1-3) Al Hydroxide/Mg Hydroxide (Magnesium Hydrox/Alum Hydrox 30 Ml Oral.Susp) 30 ml PO Q6H PRN PRN Reason: Heartburn/Nausea Aripiprazole (Aripiprazole 5 Mg Tablet) 5 mg PO DAILY [facility] Last Admin: 05/14/24 09:25 Dose: 5 mg Buprenorphine/Naloxone (Buprenorphine/Naloxone 8/2 Mg Film) 1 film SUBLINGUAL DAILY@1100 [facility] Last Admin: 05/14/24 11:17 Dose: 1 film Hydroxyzine HCl (Hydroxyzine Hcl 25 Mg Tablet) 25 mg PO Q6H PRN PRN Reason: Anxiety Last Admin: 05/13/24 21:50 Dose: 25 mg Magnesium Hydroxide (Milk Of Magnesia 30 Ml Oral.Susp) 30 ml PO DAILY PRN PRN Reason: Constipation Nicotine (Nicotine 21 Mg Patch.Td24) 21 mg TRANSDERMA DAILY [facility] Last Admin: 05/14/24 09:24 Dose: 21 mg Nicotine Polacrilex (Nicotine Polacrilex 2 Mg Gum) 4 mg BUCCAL Q2H PRN PRN Reason: Nicotine Cravings Last Admin: 05/14/24 13:34 Dose: 4 mg Pt Own ( Methylphenidate Hcl 20 Mg Tablet Extended Release) 20 mg PO BID@0900,1500 [facility] Last Admin: 05/12/24 08:58 Dose: 20 mg Trazodone HCl (Trazodone Hcl 50 Mg Tablet) 50 mg PO BEDTIME MRX1 PRN PRN Reason: Insomnia Allergies Allergies Allergy/AdvReac Type Severity Reaction Status Date / Time No Known Allergies Allergy Unverified 05/09/24 22:15 [No Known Allergies*] Assessment & Plan Assessment & Plan (1) Bipolar disorder, curr episode manic w/o psychotic features, moderate: Status: Acute Code(s): F31.12 - Bipolar disorder, current episode manic without psychotic features, moderate Plan Presents with worsening mental state in the context of being off medications for 18 months. Mixed symptoms of low mood, anxiety, decreased appetite, decreased need for sleep, flight of ideas, impulsivity and irritability. Has maintain sobriety. Psychosocial stressors. Will restart medications but rather than olanzapine utilize Abilify given weight gain in the past. Hydroxyzine as needed. Will also need to reestablish outpatient services PLAN 05/13 continue tx. 05/14 Discharge 05/15. Reason for continued inpatient stay Substantial Risk for: rapid decompensation Time Spent With Patient Time: Total time managing care of this patient today ____ minutes.
[2024-05-14 17:09] VITALS: BP 155/90; PULSE 77; RESP 16; TEMP 36.5; O2SAT 97
[2024-05-14] MEDS: hydrOXYzine HCL 25 MG TABLET PO (17:12)
[2024-05-14] MEDS: Acetaminophen 325 MG TABLET 650 MG PO (17:13)
--- NOTE | 2024-05-14 17:14 | PC.NURSE ---
pt reports cold sweats and generalized pain and believes it's due to Ritilin being held for previous low pulse. Vitals obtained PULSE 77, BP 155/90, TEMP 36.5, O2 97%, RR 16. O/C provider JS notified via [place] Text.
[2024-05-14 18:27] VITALS: BP 124/78; PULSE 74; RESP 16; TEMP 36.4; O2SAT 97
[2024-05-14] MEDS: cloNIDine HCL 0.1 MG TABLET PO (18:28)
[2024-05-15 08:00] VITALS: BP 142/78; PULSE 44; TEMP 36.1; O2SAT 100
[2024-05-15 08:23] VITALS: PULSE 61
[2024-05-15] MEDS: Nicotine 21 MG PATCH.TD24 TRANSDERMA (08:23)
[2024-05-15] MEDS: ARIPiprazole 5 MG TABLET PO (08:24)
[2024-05-15] MEDS: Nicotine Polacrilex 2 MG GUM 4 MG BUCCAL (09:11)
[2024-05-15] MEDS: Buprenorphine/Naloxone 8/2 mg FILM 1 FILM SUBLINGUAL (10:38)
--- NOTE | 2024-05-15 17:03 | P.DS_ITS ---
DS: Providers Provider Date of Service: 05/15/24 Date of admission: 05/10/24 12:27 Date of discharge: 05/15/24 Primary care physician: Unknown Physician Admitting clinician: Iker Herr Attending physician on admission: Iker Herr Attending physician on discharge: Barrera Peralta Discharging clinician: Yris Kelley DS: Diagnosis Discharge Diagnosis (1) Bipolar disorder, curr episode manic w/o psychotic features, moderate: Status: Acute DS: Medications Discharge Medications Home Medications: Previous Rx's ?Medication ?Instructions ?Recorded aripiprazole 5 mg tablet (Abilify) 5 mg PO DAILY #30 tabs 05/14/24 buprenorphine 8 mg-naloxone 2 mg 2 film sublingual DAILY@1100 #2 ea 05/14/24 sublingual film (Suboxone) hydroxyzine HCl 25 mg tablet 25 mg PO Q6H PRN Anxiety #60 tabs 05/14/24 nicotine (polacrilex) 2 mg gum 4 mg buccal Q2H PRN Nicotine 05/14/24 Cravings 30 days #100 ea Mental Status Exam Mental Status Exam Narrative: Appearance: wearing casual clothing, good hygiene, 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 Memory/cog: alert, oriented x 3. grossly intact to conversational testing. Data Data Completed and Pending Completed studies during hospitalization [Text1]: 05/09/24 05/09/24 23:03 23:12 WBC 10.9 H RBC 4.46 L Hgb 14.4 Hct 41.7 L MCV 93.5 MCH 32.3 MCHC 34.5 RDW 13.1 Plt Count 229 MPV 10.1 Immature Gran % (Auto) 0.2 Neut % (Auto) 82.9 H Lymph % (Auto) 10.4 L Storey % (Auto) 5.9 Eos % (Auto) 0.1 Baso % (Auto) 0.5 Lymph # (Auto) 1.1 L Storey # (Auto) 0.6 Eos # (Auto) 0.0 Baso # (Auto) 0.1 Abs Immat Gran (auto) 0.02 Absolute Neuts (auto) 9.0 H Absolute Nucleated RBC 0.000 Nucleated RBC % (auto) 0.0 Sodium 142 Potassium 4.3 Chloride 108 Carbon Dioxide 26 Anion Gap 12 BUN 7 L Creatinine 0.76 Estim Creat Clear Calc 131.7 Estimated GFR > 60 Random Glucose 109 Calcium 9.4 Total Bilirubin 0.7 AST 16 ALT 13 Alkaline Phosphatase 71 Total Protein 7.3 Albumin 4.5 Urine Opiates Screen Not Detected Ur Buprenorphine Scrn Positive H Ur Oxycodone Screen Not Detected Urine Methadone Screen Not Detected Urine Fentanyl Screen Not Detected Ur Barbiturates Screen Not Detected Ur Phencyclidine Scrn Not Detected Ur Amphetamines Screen Not Detected U Benzodiazepines Scrn Not Detected Urine Cocaine Screen Not Detected U Marijuana (THC) Screen POSITIVE H Ethyl Alcohol < 10 DS: Summary Hospital Course Hospital Course: Admission to adult psychiatry for exacerbation of bipolar disorder. Pt had been off meds for approximately 18 months with sx of raaceli. Regime was assessed and adjusted. Pt remained on suboxone for opiate use disorder. He stabilized and will attend [facility], [facility] and [facility] upon discharge. Status at Discharge Functional status at discharge: independent ambulation Overall status at discharge: patient is back to baseline Time Spent with Patient Time attestation: Total time managing care of this patient today ____ minutes. Time spent: Less than 30 minutes Discharge Plan Discharge Anticipated Discharge Date/Time: 05/15/24 12:00 Patient Disposition: Home, Self-Care Discharge Diagnosis: Bipolar Disorder Referrals: [facility] [Other] - 1 Week (You can check this out online as well for information about the program. Look up [facility].) Therapy Intake: Ting Fitzgerald ([facility]) [Other] - 05/21/24 10:00 am (Appointment is in person at the office in [place] ) Psych Prescriber: Sarah Beth Salter ([facility]) [Other] - 07/02/24 2:00 pm (Telehealth ) [facility] DAI, MEDICATION MANAGEMENT [Other] - 06/06/24 1:00 am Alis Greer MD [Physician] - 1 Week (office will call patient with follow- up appointment.) Discharge Medications: New aripiprazole [Abilify] 5 mg Tablet 5 mg PO DAILY Qty: 30 0RF buprenorphine-naloxone [Suboxone] 8-2 mg Film 2 film sublingual DAILY@1100 Qty: 2 0RF hydroxyzine HCl 25 mg Tablet 25 mg PO Q6H PRN (Reason: Anxiety) Qty: 60 0RF Continued nicotine (polacrilex) 2 mg Gum 4 mg buccal Q2H PRN (Reason: Nicotine Cravings) 30 Days Qty: 100 0RF Discontinued buprenorphine-naloxone [Suboxone] 8-2 mg film 1 strip sublingual DAILY methylphenidate HCl 20 mg tablet extended release 20 mg PO BID Discharge Orders: Discharge Order (Routine); Ordered 05/15/24 Ordered By: rYis Kelley Diet: Advance to usual diet Activity on Discharge: As tolerated Stand Alone Forms: Patient Portal Discharge page, Community Support Print Language: Turkish Care Plan Goals: Mood and Behavioral Stabilization Health Concerns: Mood and Behavioral Stabilization Plan of Treatment: Attend scheduled appointments Take medications as directed Call/Return as needed Assessment: Denies SI/HI/AH/VH. No symptoms of araceli or psychosis Agrees with plan of care Discharge Date/Time: 05/15/24 11:08
== END 2024-05-15 11:08 | disposition home or self-care (01) | DRG 885 ==
LOC: HO.ED 05-10 00:04 → HO.PM5 05-10 13:33
PROVIDERS: Emergency Medicine; Admitting Provider Psychiatry & Neurology Psychiatry; Emergency Provider Emergency Medicine; Visit Provider Psychiatry & Neurology Psychiatry
DX: F31.12 Bipolar disorder, current episode manic without psychotic features, moderate (principal); F11.20 Opioid dependence, uncomplicated; Z87.891 Personal history of nicotine dependence; Z79.899 Other long term (current) drug therapy
CPT/HCPCS: 36415; 80053; 80307; 85025; 93005; 99285; S9485

== ENCOUNTER 2024-05-10 12:27 | Outpatient (BNV) | payer MEDICAID, SELFPAY | END 2024-05-11 12:21 | PROVIDERS: Admitting Provider Psychiatry & Neurology Psychiatry; Emergency Provider Emergency Medicine; Visit Provider Internal Medicine Cardiovascular Disease | DX: R00.1 Bradycardia, unspecified (principal) | CPT/HCPCS: 93010 ==

== ENCOUNTER → 2024-05-10 12:27 | Outpatient (BNV) | payer OTHER, SELFPAY | PROVIDERS: Admitting Provider Psychiatry & Neurology Psychiatry; Emergency Provider Emergency Medicine; Visit Provider Psychiatry & Neurology Psychiatry | DX: F31.12 Bipolar disorder, current episode manic without psychotic features, moderate (principal) | CPT/HCPCS: 99222; 99231; 99232; 99238 ==

== ENCOUNTER 2024-05-30 09:33 | Outpatient (AMB) | payer OTHER, SELFPAY ==
--- NOTE | 2024-05-30 09:41 | MHC.OFFVISPS ---
Intake Intake Visit Reasons: bridge appt from [facility] [employer] Operator Required: No Allergies No Known Allergies [No Known Allergies*] Allergy (Unverified 05/09/24 22:15) Medication List - Last Reconciled 05/30/24 by Sarah Stovall APRN aripiprazole (Abilify) 5 mg PO DAILY buprenorphine-naloxone 8-2 mg (Suboxone) 2 film sublingual DAILY@1100 clonidine HCl mg PO hydroxyzine HCl 25 mg PO Q6H PRN methylphenidate HCl ER mg PO nicotine (polacrilex) 4 mg buccal Q2H PRN 30 days ondansetron HCl 4 mg PO Q8H PRN HPI- Psychiatric Chief Complaint: bridge appt from [facility] HPI Narrative: Pt reports he has been coping well since discharge but has had some ups and downs. Hes had some difficult moods so he increased the abilify to 10mg daily and that has helped; he saw his PCP who restarted him on methylphenidate and clonidine. He denies side effects; he denies dizziness or sedation; He has been taking 50 mg of hydroxyzine 3-4 times a day with no side effect. He would like to increase it. He is sleeping 4-5 hours a night, waking up in middle of night up for 15 min but then goes back to; He reports some outbursts but more able to calm himself down more quickly. He deies any sedation, dizziness, or syncope. He denies chest apin or SOB; he agreed to go to ER if any chest pain as he has had bradycardia and is on QTC prolonging agents. We discussed him having repeat EKG at next visit Past Psychiatric History: One prior admission 2 years ago with a manic episode and psychosis. -Per chart, pt cut himself in front of his partner when he found out she cheated on him 10 yrs ago. -Past meds: Wellbutrin (wt gain), ?a lot of antidepressants (from PCP) Subjective Subjective Subjective Medication Compliance: Yes Side effects from medications: No Review of Systems Medical Review of Systems: unchanged Mental Status Exam Mental Status Exam Patient Appearance: Well Grooomed and Appropriate Patient Orientation: Person, Place, Time and Situation Level of Consciousness: Awake and Appropriate Patient Behavior: Appropriate, Cooperative and Good Eye Contact Mood Description: Appropriate and Anxious Affect Description: Appropriate and Anxious Patient Cognition Impaired: No Ability to Follow Directions: Good Speech Pattern: Clear, Appropriate and Coherent Memory Description: Intact Hallucinations: None Delusions: Not Present Thought Process: Intact and Goal Oriented Thought Content: positive for Intact and positive for Goal Oriented Judgement: Fair Assessment and Plan Assessment & Plan (1) Bipolar disorder, curr episode manic w/o psychotic features, moderate: Status: Acute Code(s): F31.12 - Bipolar disorder, current episode manic without psychotic features, moderate (2) Anxiety: Status: Acute Code(s): F41.9 - Anxiety disorder, unspecified Plan Increase abilify to 10 mg daily increase hydroxyzine to 50 mg q 6-8 hours prn anxiety stay hydrated go to Ed if chest pain or SOB - pt verbalized understanding Medications: New hydroxyzine pamoate 50 mg PO Q6-8H PRN 120 caps 1RF itching aripiprazole (Abilify) 10 mg PO DAILY 30 tabs 1RF Discontinued aripiprazole (Abilify) Discontinued Reason: Doctor's Order 5 mg PO DAILY 30 tabs 0RF hydroxyzine HCl Discontinued Reason: Doctor's Order 25 mg PO Q6H PRN 60 tabs 0RF Anxiety Counseling and coordination of Care Pt. Self Management counseling: Maintenance-social rhythm, Mod caffeine/ETOH intake, Nutrition education and improvement, Sleep hygiene and Behavior activation Medication management counseling: Effectiveness, Side effects, Dosing range, Duration, Drug interaction and Adherence Diagnosis and Prognosis Counseling: Accuracy of diagnosis, Prognosis over time, Impact of diagnosis on life functions, Impact of family relationship, Problematic behaviors secondary to diagnosis and Adequacy of current interventions Details: I spent 45 minutes reviewing the record, seeing the patient and documenting in the medical record. Counseling provided to the patient/caregiver as outlined below. Addressed patient/caregiver concerns regarding current medication regime including effective adherence. Addressed patient/caregiver concerns regarding diagnosis and prognosis including accuracy of diagnosis, prognosis over time, impact of diagnosis. Addressed patient/caregiver concerns regarding impact of recent stressors. [facility] Medical History Depression Opiate use Social History (Updated 01/13/22 @ 01:22 by Janay Whitt DO) Household Members: Significant Other and Children Housing: House Do you presently have visiting nurse or other home services: No Patient Tobacco Use Status: Former Tobacco user Tobacco use type: Cigarette e-Cigarette/Vaping Use: Currently Using Second Hand Smoke Exposure: No Substance Use Type: Marijuana service: No Sexual orientation: Did not discuss Social History: Living with partner of 21 years. Two children age 19 and 13. 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 Reported in his words getting in his own way and quitting. Substance History: Sober from opiates for 13 years on Suboxone Trauma History: -Per chart, pt had a chaotic upbringing. Coding Level of Care Code Est Pt Level 5 (57943) Diagnoses Bipolar disorder, curr episode manic w/o psychotic features, moderate F31.12 Anxiety F41.9
== END 2024-05-30 09:54 | disposition home or self-care (01) ==
PROVIDERS: Visit Provider Clinical Nurse Specialist Psychiatric/Mental Health
DX: F31.12 Bipolar disorder, current episode manic without psychotic features, moderate (principal); F41.9 Anxiety disorder, unspecified
CPT/HCPCS: 99215

== ENCOUNTER → 2024-05-30 09:33 | Outpatient (BNVA) | payer OTHER, SELFPAY | PROVIDERS: Visit Provider Clinical Nurse Specialist Psychiatric/Mental Health ==